=== PATIENT | female | born 1955 | race Caucasian/White ===

== ENCOUNTER 2020-08-02 09:35 | Outpatient (REF) | payer MEDICARE, MEDICAID, SELFPAY | END 2020-08-02 09:36 | disposition home or self-care (01) | LOC: HO.HAP 09:35 | PROVIDERS: Visit Provider Internal Medicine | DX: Z46.1 Encounter for fitting and adjustment of hearing aid (principal) | CPT/HCPCS: V5266 ==

== ENCOUNTER 2020-08-16 18:56 | Emergency (ER) | payer MEDICARE, MEDICAID, SELFPAY ==
--- NOTE | ~2020-08-16 | CT_ITS ---
EXAMINATION: CT ABDOMEN AND PELVIS WITHOUT CONTRAST CLINICAL INFORMATION: Right flank and groin pain COMPARISON: CT abdomen pelvis 10/03/2018 TECHNIQUE: Multidetector volumetric imaging was performed from the superior aspect of the liver through the pubic symphysis. Sagittal and coronal reformatted images were obtained on the technologist's workstation. This CT examination was performed using dose optimization techniques as appropriate, variously including the following: *Automated exposure control *Adjustment of mA and/or kV according to patient size (this includes techniques or standardized protocols for targeted exams where dose is matched to indication/reason for exam; i.e. extremities or head) *Use of iterative reconstruction technique DLP: 862 mGy-cm FINDINGS: LUNG BASES: The visualized lung bases are unremarkable. LIVER, GALLBLADDER, AND BILIARY TREE: The liver is normal in size, shape, and attenuation. No focal hepatic lesion or biliary ductal dilatation is present. The gallbladder is unremarkable with no evidence of radiopaque gallstones, gallbladder wall thickening, or obvious pericholecystic inflammatory changes. PANCREAS: Unremarkable. SPLEEN: Unremarkable. ADRENAL GLANDS: Unremarkable. KIDNEYS AND URETERS: Right kidney: There is right-sided hydronephrosis and dilatation of the ureter with associated perinephric stranding with an obstructing distal right ureteral calculus measuring 3 mm. Chest and back of this is a another tiny punctate 1 mm calculus. Within the right kidney itself are at least 5 small punctate nonobstructing calculi, the largest measuring under 3 mm in size. Left kidney: 5 nonobstructing left renal calculi are present none larger than 3 mm. Parapelvic cysts are present. No solid renal masses are seen. The left-sided collecting system is not dilated and the left ureter is unremarkable. BLADDER: Unremarkable. GASTROINTESTINAL TRACT: A small hiatal hernia is present. Scattered colonic diverticula are seen without diverticulitis The small and large bowel are otherwise unremarkable. The appendix is unremarkable. ABDOMINAL WALL: No significant hernia is appreciated. LYMPH NODES: No retroperitoneal lymphadenopathy. VASCULAR: Unremarkable. Minimal aortic calcification plaque is present without aneurysm. PELVIC VISCERA: An anteverted uterus is present. An abnormal adnexal mass is not seen. No free intraperitoneal fluid is present. OSSEOUS STRUCTURES: Marked degenerative changes present at L3-L4 and L5-S1. No bony destructive lesions are seen. CT/CT abdomen pelvis wo con IMPRESSION: 1. Obstructing 3 mm calculus distal right ureter at the UVJ with associated uretero-pelvocaliectasis. 2. Bilateral small punctate nonobstructing intrarenal calculi. 3. Other incidental findings as described above.
[2020-08-16 20:25] VITALS: BP 177/81; PULSE 72; RESP 18; TEMP 36.5; O2SAT 100; BMI 34.4
[2020-08-16 20:44] VITALS: BP 176/82; PULSE 62; RESP 18; TEMP 36.6; O2SAT 100
--- NOTE | 2020-08-16 20:46 | PC.NURSE ---
patient a&ox3, c/o rt flank/back pain and low abd pain, denies trauma, pt states she vomited prior to coming to the ED. vss.
[2020-08-16 22:14] LABS: MANUAL DIFF FLAG NO
[2020-08-16 22:16] LABS: Basophils Percent Auto 0.3 % (0-2); Eosinophils Percent Auto 0.4 % (0-4); Hematocrit 39.4 % (37-47); Hemoglobin 13.6 g/dl (12.0-16.0); Imm Gran Abs Auto 0.04 X10*3/uL (0.00-0.03); Imm Gran Pct Auto 0.4 % (0.0-0.4); Lymphocytes Percent Auto 10.2 % (20-40); Mean Corpuscular HGB Conc 34.5 g/dl (31.0-35.0); Mean Corpuscular Hemoglobin 32.2 pg (27.0-33.0); Mean Corpuscular Volume 93.4 fL (80-98); Mean Platelet Volume 11.3 fL (9.4-12.3); Monocytes Absolute Auto 0.5 X10*3/uL (0.1-1.2); Monocytes Percent Auto 5.7 % (2-11); Neutrophils Absolute Auto 7.7 X10*3/uL (2.0-8.3); Platelet Count 152 X10*3/uL (160-400); Red Blood Count 4.22 X10*6/uL (4.20-5.50); Red Cell Distribution Width 11.7 % (11.0-16.0); White Blood Count 9.3 X10*3/uL (4.8-10.8)
[2020-08-16 22:23] LABS: Glucose Urine UA NEG (NEG); Leukocyte Esterase Urine NEG (NEG); Nitrite Urine NEG (NEG); PH 5.5 (5.0-8.0); Urine Blood 2+ (NEG); Urine Ketones 5 MG/DL (NEG); Urine Protein NEG (NEG-TRACE)
[2020-08-16] MEDS: oxyCODONE HCl Immed Release 5 MG TABLET PO (22:24)
[2020-08-16 22:25] LABS: INTERNATIONAL NORM RATIO 1.1 (0.9-1.1); Prothrombin Time 12.7 SEC (10.8-13.0)
[2020-08-16 22:26] LABS: Appearance Urine CLEAR; Color Urine YELLOW
--- NOTE | 2020-08-16 22:27 | PC.NURSE ---
urine obtained, pt medicated per order
[2020-08-16 22:28] LABS: Partial Thromboplastin Time 31.2 SEC (24.1-38.0)
[2020-08-16 22:37] VITALS: BP 154/83; PULSE 102; RESP 18; TEMP 36.7; O2SAT 96
[2020-08-16 22:38] LABS: Alanine Aminotransferase 35 U/L (0-31); Albumin Level 4.2 g/dL (3.5-5.0); Alkaline Phosphatase 87 U/L (39-117); Anion Gap 15 (12-20); Aspartate Amino Transferase 23 U/L (5-31); Bilirubin Direct 0.2 mg/dL (0.0-0.5); Bilirubin Total 0.4 mg/dL (0.0-1.0); Blood Urea Nitrogen 18 mg/dL (9-16); Calcium 9.2 mg/dL (8.4-10.2); Carbon Dioxide 28 mmol/L (22-29); Chloride 98 mmol/L (96-108); Estimated Glomerular Filt Rate > 60; Glucose Random 117 mg/dL (60-115); Lipase 14 U/L (8-78); Potassium 3.4 mmol/L (3.3-5.1); Sodium 138 mmol/L (135-145); Total Protein 6.9 g/dL (6.5-8.0)
[2020-08-16 22:41] LABS: Bacteria Urine TRACE /LPF; Squamous Epithelial Cell Urine TRACE /LPF; WBC Urine 0-2 /HPF (0-4)
--- NOTE | 2020-08-16 23:33 | ED_ITS ---
HPI - General Adult General Chief complaint: Back Pain/Injury Stated complaint: BACK AND GROIN PAIN Time Seen by Provider: 08/16/20 21:41 Source: patient Mode of arrival: ambulatory Limitations: no limitations History of Present Illness HPI narrative: Patient presents to ED for right lower flank pain radiating to ri t lower abdomen and groin while during dinner. Patient also states dysuria. Patient states no hematuria. Patient states some nausea, but no vomiting. Patient states no fever chills. Patient denies any recent trauma to the abdomen, flank, upper back area. Patient states no chest pain or shortness of breath Related Data Previous Rx's Medication Instructions Recorded oxycodone-acetaminophen [Percocet] 1 tab PO TID PRN #9 tab 08/16/20 prednisone 40 mg PO DAILY #10 tab 08/16/20 tamsulosin [Flomax] 0.4 mg PO DAILY #10 cap 08/16/20 Allergies Allergy/AdvReac Type Severity Reaction Status Date / Time No Known Allergies Allergy Verified 08/16/20 20:24 [No Known Allergies*] Review of Systems Review of Systems: Yes all other systems are reviewed and are negative Constitutional: Constitutional: Reports as per HPI and Reports no additional constitutional complaints Eyes: Eyes: Reports as per HPI and Reports no additional eye complaints ENT: Reports system reviewed and no additional complaints, except as documented and Reports as per HPI Cardiovascular: Cardiovascular: Reports as per HPI and Reports no additional cardiovascular complaints Respiratory: Respiratory: Reports as per HPI and Reports no additional respiratory complaints Gastrointestinal: Gastrointestinal: Reports as per HPI and Reports no additional gastrointestinal complaints Genitourinary: Genitourinary: Reports no additional female genitourinary complaints and Reports as per HPI Comments: Positive right flank pain. Dysuria Musculoskeletal: Musculoskeletal: Reports no additional musculoskeletal complaints and Reports as per HPI Neurologic: Reports system reviewed and no additional complaints, except as documented and Reports as per HPI [facility] [place] Past Medical History Medical History (Updated 08/16/20 @ 23:47 by GEOVANNA Bingham) Hypertension Social History Social History Alcohol intake: never Smoked in Last 30 Days: No Use of substances other than those prescribed or required for medical reasons: No Advance Directives: No Advance Directives Information Provided: No Physical Exam Vital Signs: Vital Signs: Last Vital Signs Temp 98.0 F 08/16/20 22:37 Pulse 70 08/16/20 23:37 Resp 18 08/16/20 23:37 BP 135/64 08/16/20 23:37 Pulse Ox 94 08/16/20 23:37 Body Mass Index 34.4 Const: General: cooperative, healthy appearing, comfortable, no acute distress, well developed, alert, awake and Physically active Orientation/consciousness: patient oriented x3 HENMT: Head: Yes normal to inspection and Yes No palpable skull fracture present Eyes: General: appearance normal, both eyes and all related structures Neck: Neck: Yes normal visual inspection, Yes full ROM, Yes no lymphadenopathy, Yes no meningeal signs, Yes trachea midline, Yes supple and No tender Chest: Chest palpation & inspection: normal inspection of the chest and normal palpation of entire chest wall Resp: Effort & Inspection: normal respiratory effort and able to speak in co mplete sentences Auscultation: clear to auscultation bilaterally Cardio: Jugular venous distension: no JVD Heart sounds: S1 normal heart sound present and S2 normal heart sound present GI: Inspection: Yes normal to inspection and No abdominal wall ecchymosis Palpation (GI): Soft to palpation, not firm, Tenderness to palpation present (GI) (Right suprapubic) suprapubicly; not at McBurney's point, not periumbilically, Carmichael's sign negative, obturator sign negative, psoas sign negative, with no rebound tenderness and Rovsing's sign negative, no guarding and not rigid : General: Yes CVA tenderness (Mild right CVA) Back/Spine/Pelvis: Back: CVA tenderness (Mild right CVA) Skin: General skin exam: no rashes or lesions noted and elasticity normal Neuro: General: patient oriented x3, no meningeal signs and CN's II-XI intact bilaterally Cranial nerves: Yes CN's II-XII intact bilaterally Extrem: General: Yes normal to inspection and Yes full ROM Psych: Appearance: grossly normal, well kempt and not disheveled Course Course Course Narrative: Patient will be evaluated for possible kidney stones. Patient given p.o. pain medication and Zofran. Reevaluation(s) Reevaluation #1: UA shows blood but negative for UTI. Kidney function came back normal. Negative for elevated white blood cell count. Abdominal CT scan shows 3 mm ureter stone. Patient present not any distress. Patient discharged with prednisone, Flomax, and Percocet Time: 23:46 Medical Decision Making MDM Narrative Medical decision making narrative: Ureter stone Lab Data Result diagrams: 08/16/20 22:07 08/16/20 22:07 Labs: Lab Results 08/16/20 08/16/20 08/16/20 Range/Units 22:07 22:07 22:07 WBC 9.3 (4.8-10.8) X10*3/uL RBC 4.22 (4.20-5.50) X10*6/uL Hgb 13.6 (12.0-16.0) g/dl Hct 39.4 (37-47) % MCV 93.4 (80-98) fL MCH 32.2 (27.0-33.0) pg MCHC 34.5 (31.0-35.0) g/dl RDW 11.7 (11.0-16.0) % Plt Count 152 L (160-400) X10*3/uL MPV 11.3 (9.4-12.3) fL Immature Gran % (Auto) 0.4 (0.0-0.4) % Neut % (Auto) 83.0 H (45-73) % Lymph % (Auto) 10.2 L (20-40) % Banner % (Auto) 5.7 (2-11) % Eos % (Auto) 0.4 (0-4) % Baso % (Auto) 0.3 (0-2) % Lymph # (Auto) 1.0 L (1.2-4.9) X10*3/uL Banner # (Auto) 0.5 (0.1-1.2) X10*3/uL Eos # (Auto) 0.0 (0.0-0.4) X10*3/uL Baso # (Auto) 0.0 (0.0-0.2) X10*3/uL Abs Immat Gran (auto) 0.04 H (0.00-0.03) X10*3/uL Absolute Neuts (auto) 7.7 (2.0-8.3) X10*3/uL Absolute Nucleated RBC 0.000 (0.0-0.012) X10*3/uL Nucleated RBC % (auto) 0.0 (0.0-0.2) /100WBC PT 12.7 (10.8-13.0) SEC INR 1.1 (0.9-1.1) APTT 31.2 (24.1-38.0) SEC Sodium 138 (135-145) mmol/L Potassium 3.4 (3.3-5.1) mmol/L Chloride 98 (96-108) mmol/L Carbon Dioxide 28 (22-29) mmol/L Anion Gap 15 (12-20) BUN 18 H (9-16) mg/dL Creatinine 0.74 (0.5-1.4) mg/dL Estim Creat Clear Calc 92.0 Estimated GFR > 60 Random Glucose 117 H (60-115) mg/dL Calcium 9.2 (8.4-10.2) mg/dL Total Bilirubin 0.4 (0.0-1.0) mg/dL Direct Bilirubin 0.2 (0.0-0.5) mg/dL AST 23 (5-31) U/L ALT 35 H (0-31) U/L Alkaline Phosphatase 87 (39-117) U/L Total Protein 6.9 (6.5-8.0) g/dL Albumin 4.2 (3.5-5.0) g/dL Lipase (8-78) U/L Urine Color Urine Appearance Urine pH (5.0-8.0) Ur Specific [employer] (1.005-1.025) Urine Protein (NEG-TRACE) MG/DL Urine Glucose (UA) (NEG) MG/DL Urine Ketones (NEG) MG/DL Urine Blood (NEG) Urine Nitrite (NEG) Ur Leukocyte Esterase (NEG) Urine RBC (0) /HPF Urine WBC (0-4) /HPF Ur Squamous Epith Cells /LPF Urine Bacteria /LPF 08/16/20 08/16/20 Range/Units 22:07 22:17 WBC (4.8-10.8) X10*3/uL RBC (4.20-5.50) X10*6/uL Hgb (12.0-16.0) g/dl Hct (37-47) % MCV (80-98) fL MCH (27.0-33.0) pg MCHC (31.0-35.0) g/dl RDW (11.0-16.0) % Plt Count (160-400) X10*3/uL MPV (9.4-12.3) fL Immature Gran % (Auto) (0.0-0.4) % Neut % (Auto) (45-73) % Lymph % (Auto) (20-40) % Banner % (Auto) (2-11) % Eos % (Auto) (0-4) % Baso % (Auto) (0-2) % Lymph # (Auto) (1.2-4.9) X10*3/uL Banner # (Auto) (0.1-1.2) X10*3/uL Eos # (Auto) (0.0-0.4) X10*3/uL Baso # (Auto) (0.0-0.2) X10*3/uL Abs Immat Gran (auto) (0.00-0.03) X10*3/uL Absolute Neuts (auto) (2.0-8.3) X10*3/uL Absolute Nucleated RBC (0.0-0.012) X10*3/uL Nucleated RBC % (auto) (0.0-0.2) /100WBC PT (10.8-13.0) SEC INR (0.9-1.1) APTT (24.1-38.0) SEC Sodium (135-145) mmol/L Potassium (3.3-5.1) mmol/L Chloride (96-108) mmol/L Carbon Dioxide (22-29) mmol/L Anion Gap (12-20) BUN (9-16) mg/dL Creatinine (0.5-1.4) mg/dL Estim Creat Clear Calc Estimated GFR Random Glucose (60-115) mg/dL Calcium (8.4-10.2) mg/dL Total Bilirubin (0.0-1.0) mg/dL Direct Bilirubin (0.0-0.5) mg/dL AST (5-31) U/L ALT (0-31) U/L Alkaline Phosphatase (39-117) U/L Total Protein (6.5-8.0) g/dL Albumin (3.5-5.0) g/dL Lipase 14 (8-78) U/L Urine Color YELLOW Urine Appearance CLEAR Urine pH 5.5 (5.0-8.0) Ur Specific [employer] 1.020 (1.005-1.025) Urine Protein NEG (NEG-TRACE) MG/DL Urine Glucose (UA) NEG (NEG) MG/DL Urine Ketones 5 (NEG) MG/DL Urine Blood 2+ H (NEG) Urine Nitrite NEG (NEG) Ur Leukocyte Esterase NEG (NEG) Urine RBC 5-9 H (0) /HPF Urine WBC 0-2 (0-4) /HPF Ur Squamous Epith Cells TRACE /LPF Urine Bacteria TRACE /LPF Discharge Plan Discharge Clinical Impression: Calculus, ureter Patient Disposition: Home, Self-Care Instructions: Ureteral Stones (ED) Additional Instructions: Return to the ED immediately worsening abdominal/flank pain, nausea, vomiting, fever, chills, or any other concerning symptoms. Prescriptions: New oxycodone-acetaminophen [Percocet] 2.5-325 mg tablet 1 tab PO TID PRN (Reason: pain) Qty: 9 RF: 0 tamsulosin [Flomax] 0.4 mg capsule 0.4 mg PO DAILY Qty: 10 RF: 0 prednisone 20 mg tablet 40 mg PO DAILY Qty: 10 RF: 0 Referrals: Jaime Jaramillo MD [Physician] - 2 days (3mm Right Ureter Stone.) Interventions: ED Discharge Assessment Last Done: 08/17/20 00:14 Discharge Date/Time: 08/17/20 00:14 Print Language: Hebrew
[2020-08-16 23:37] VITALS: BP 135/64; PULSE 70; RESP 18; O2SAT 94
== END 2020-08-17 00:14 | disposition home or self-care (01) ==
PROVIDERS: Physician Assistant; Emergency Provider Emergency Medicine; PCP Internal Medicine
DX: N13.2 Hydronephrosis with renal and ureteral calculous obstruction (principal); I10 Essential (primary) hypertension
CPT/HCPCS: 36415; 74176; 80053; 80076; 81001; 82248; 83690; 85025; 85610; 85730; 99284

== ENCOUNTER 2020-08-21 13:36 | Outpatient (REF) | payer MEDICARE, MEDICAID, SELFPAY ==
--- NOTE | 2020-08-21 13:57 | MHC.AU.P13 ---
Hearing Instrument Problem Date of Visit: 08/21/20 Right Ear: Motor Expert: Phonak Model: SpanDeXEO M70-13T Serial Number: [id number] Repair Warranty: 04/29/2023 ORIGINAL REPAIR AND L&D Loss and Damage Warranty: 04/29/2023 Battery Size: 13 Color: SANDALWOOD Grails Web Application Developer: 1M Type of Dome: SMALL OPEN Type of Wax Guard: CERUSHIELD Left Ear: Motor Expert: Phonak Model: AUDEO M70-13T Serial Number: [id number] RepairWarranty: 04/29/2023 REPAIR AND L&D Loss and Damage Warranty: 04/29/2023 Battery Size: 13 Color: SANDALWOOD Grails Web Application Developer: 1M Type of Dome: SMALL OPEN Type of Wax Guard: CERUSHIELD Follow-Up Summary: [facility] Problem: Right aid not working - Both hearing aids cleaned, wax guards replaced, small open domes replaced and now both amplifying clearly. Recommendations: Recommendations: Hearing instrument follow-up or maintenance as needed. Signature: Provider: BRAXTON Love-
== END 2020-08-21 13:37 | disposition home or self-care (01) ==
LOC: HO.HAP 13:36
PROVIDERS: Visit Provider Internal Medicine
DX: Z46.1 Encounter for fitting and adjustment of hearing aid (principal)
CPT/HCPCS: 92593; 99499

== ENCOUNTER 2021-02-19 09:08 | Outpatient (REF) | payer MEDICARE, MEDICAID, SELFPAY | END 2021-02-19 09:09 | disposition home or self-care (01) | LOC: HO.HAP 09:08 | PROVIDERS: Visit Provider Internal Medicine | DX: Z46.1 Encounter for fitting and adjustment of hearing aid (principal); H90.3 Sensorineural hearing loss, bilateral | CPT/HCPCS: 92593; V5266 ==

== ENCOUNTER 2021-06-27 14:18 | Outpatient (REF) | payer MEDICARE, MEDICAID, SELFPAY | END 2021-06-27 14:19 | disposition home or self-care (01) | LOC: HO.HAP 14:18 | PROVIDERS: Visit Provider Internal Medicine | DX: Z46.1 Encounter for fitting and adjustment of hearing aid (principal); H90.3 Sensorineural hearing loss, bilateral | CPT/HCPCS: V5266 ==

== ENCOUNTER 2021-08-07 10:58 | Emergency (ER) | payer MEDICARE, MEDICAID, SELFPAY ==
[2021-08-07 11:02] VITALS: BP 136/86; PULSE 86; RESP 18; TEMP 36.6; O2SAT 99; BMI 31.9
--- NOTE | 2021-08-07 11:24 | ED_ITS ---
HPI - General Adult General Chief complaint: Wound/Laceration Stated complaint: cyst Time Seen by Provider: 08/07/21 11:21 History of Present Illness HPI narrative: Patient complains of painful lump draining pus on left gluteal area for around 10 days, no fever no vomiting no abdominal pain Related Data Previous Rx's Medication Instructions Recorded oxycodone-acetaminophen 2.5 mg-325 1 tab PO TID PRN #9 tab 08/16/20 mg tablet (Percocet) prednisone 20 mg tablet 40 mg PO DAILY #10 tab 08/16/20 tamsulosin 0.4 mg capsule (Flomax) 0.4 mg PO DAILY #10 cap 08/16/20 oxycodone 5 mg tablet 2.5 mg PO Q6H PRN #10 tab 08/17/20 cephalexin 500 mg tablet 500 mg PO QID 7 Days #28 tab 08/07/21 doxycycline hyclate 100 mg capsule 100 mg PO BID 7 Days #14 cap 08/07/21 ibuprofen 600 mg tablet 600 mg PO Q6H PRN #20 tab 08/07/21 oxycodone 5 mg tablet 5 mg PO Q6H PRN #14 tab 08/07/21 Allergies Allergy/AdvReac Type Severity Reaction Status Date / Time No Known Allergies Allergy Verified 08/16/20 20:24 [No Known Allergies*] Review of Systems Review of Systems: Positive for left gluteal abscess Negatives are no fever no chills no dizziness no weakness no headache no neck pain no abdominal pain no dysuria no other abscesses or rashes Yes all other systems are reviewed and are negative [facility] [place] Past Medical History [facility] Narrative: Positive for multiple prior abscess Source: nursing notes reviewed Medical History (Updated 08/07/21 @ 13:07 by GEOVANNA Blue) Hypertension Hypothyroid Social History Social History Alcohol intake: never Advance Directives: No Advance Directives Information Provided: No Physical Exam Vital Signs: Vital Signs: Last Vital Signs Temp 98 F 08/07/21 11:02 Pulse 86 08/07/21 11:02 Resp 18 08/07/21 11:02 BP 136/86 08/07/21 11:02 Pulse Ox 99 08/07/21 11:02 BMI result Body Mass Index 31.9 General appearance no acute distress Head is normocephalic atraumatic Neck is supple Respiratory no distress Abdomen soft nontender Skin exam in the left gluteal area there is a fluctuant tender red area consistent with an abscess Extremities full range of motion x4 Neuro no focal deficits Course Course Course Narrative: Procedure note left gluteal abscess is cleansed with Betadine Anesthesia is 10 cc of 1% lidocaine A small incision is made and it is probed with forceps to break up loculations with discharge of copious pus, packing was placed in large abscess cavity and dressing was applied Discharge Plan Discharge Clinical Impression: Abscess Patient Disposition: Home, Self-Care Additional Instructions: We drained a very large amount of pus from the abscess Return to the ER in 2 days, Thursday for packing removal and wound check right It is also fine to follow with your surgeon if he has an appointment on Thursday to make sure abscess is fully drained and improving, we can do that here if he is unavailable Return any time for spreading redness, worse pain and swelling, fever, any worse condition or any concerns Pain should be significantly improved with drainage of so much fluid so if pain worsens you should come back for recheck Prescriptions: New oxycodone 5 mg tablet 5 mg PO Q6H PRN (Reason: pain) Qty: 14 0RF cephalexin 500 mg tablet 500 mg PO QID 7 Days Qty: 28 0RF doxycycline hyclate 100 mg capsule 100 mg PO BID 7 Days Qty: 14 0RF ibuprofen 600 mg tablet 600 mg PO Q6H PRN (Reason: pain) Qty: 20 0RF No Action oxycodone-acetaminophen [Percocet] 2.5-325 mg tablet 1 tab PO TID PRN (Reason: pain) Qty: 9 0RF Rx Instructions: side effect is drowsiness. Do not take at work or while driving. tamsulosin [Flomax] 0.4 mg capsule 0.4 mg PO DAILY Qty: 10 0RF prednisone 20 mg tablet 40 mg PO DAILY Qty: 10 0RF oxycodone 5 mg tablet 2.5 mg PO Q6H PRN (Reason: pain) Qty: 10 0RF Interventions: ED Discharge Assessment Last Done: 08/07/21 13:35 Discharge Date/Time: 08/07/21 13:35
[2021-08-07] MEDS: Lidocaine HCl 1 % MPF 5 ML VIAL SUBCUT ×3 (11:37→12:51)
[2021-08-07] MEDS: cephALEXin 500 MG CAPSULE PO (11:37)
[2021-08-07] MEDS: oxyCODONE HCl Immed Release 5 MG TABLET PO (12:50)
== END 2021-08-07 13:35 | disposition home or self-care (01) ==
PROVIDERS: Emergency Provider Emergency Medicine; PCP Internal Medicine
DX: L02.31 Cutaneous abscess of buttock (principal); I10 Essential (primary) hypertension
CPT/HCPCS: 10060; 99284

== ENCOUNTER 2021-08-09 07:22 | Emergency (ER) | payer MEDICARE, MEDICAID, SELFPAY ==
[2021-08-09 07:25] VITALS: BP 150/65; PULSE 65; RESP 16; TEMP 35.5; O2SAT 96; BMI 31.9
--- NOTE | 2021-08-09 08:36 | ED_ITS ---
HPI - Wound/Laceration General Chief Complaint: Wound/Laceration Stated Complaint: packing removal Time Seen by Provider: 08/09/21 08:36 Source: patient History of Present Illness HPI narrative: Patient is a 65-year-old female had an I&D done 2 days prior presented today for wound check. No fever no chills been compliant with taking her antibiotics. Feels well in general. Related Data Previous Rx's Medication Instructions Recorded oxycodone-acetaminophen 2.5 mg-325 1 tab PO TID PRN #9 tab 08/16/20 mg tablet (Percocet) prednisone 20 mg tablet 40 mg PO DAILY #10 tab 08/16/20 tamsulosin 0.4 mg capsule (Flomax) 0.4 mg PO DAILY #10 cap 08/16/20 oxycodone 5 mg tablet 2.5 mg PO Q6H PRN #10 tab 08/17/20 cephalexin 500 mg tablet 500 mg PO QID 7 Days #28 tab 08/07/21 doxycycline hyclate 100 mg capsule 100 mg PO BID 7 Days #14 cap 08/07/21 ibuprofen 600 mg tablet 600 mg PO Q6H PRN #20 tab 08/07/21 oxycodone 5 mg tablet 5 mg PO Q6H PRN #14 tab 08/07/21 Allergies Allergy/AdvReac Type Severity Reaction Status Date / Time No Known Allergies Allergy Verified 08/16/20 20:24 [No Known Allergies*] COUNTS INCLUDE 234 BEDS AT THE [facility] Past Medical History Attestation statement: The following information was validated with the patient. Medical History Hypertension Hypothyroid Social History Social History Alcohol intake: never Advance Directives: No Advance Directives Information Provided: No Physical Exam Vital Signs: Vital Signs: Last Vital Signs Temp 96 F L 08/09/21 07:25 Pulse 65 08/09/21 07:25 Resp 16 08/09/21 07:25 BP 150/65 H 08/09/21 07:25 Pulse Ox 96 08/09/21 07:25 BMI result Body Mass Index 31.9 Appearance: Alert. Oriented X3. No acute distress. Eyes: Pupils equal, round and reactive to light. ENT: Pharynx normal. Neck: Normal inspection. Neck supple. No lymph nodes noted. No crepitus CVS: Normal heart rate and rhythm. Pulses normal. Normal S1 and S2 Respiratory: No respiratory distress. Breath sounds normal. No Wheezing. No rales Abdomen: Soft and nontender. No rigidity. No distention. good BS x4 Skin: Skin warm and dry. Normal skin color. Normal skin turgor. Positive abscess to the left gluteal fold area. Previously drained. The wound packing actually fell out by itself. There is no discharge from the area. The skin did not look infected. Extremities: No lower extremity edema. Neurovascular intact to all extremities. No Lacerations. No Rash Neuro: Oriented X 3. No motor deficit. No sensory deficit. Moving all extermities. No slurred speech MDM - Wound/Laceration MDM Narrative Medical decision making narrative: Well-appearing no distress packing already fell out will discharge patient home no fever no chills no systemic complaints Discharge Plan Discharge Clinical Impression: Abscess Patient Disposition: Home, Self-Care Instructions: Incision and Drainage (ED) Prescriptions: No Action oxycodone-acetaminophen [Percocet] 2.5-325 mg tablet 1 tab PO TID PRN (Reason: pain) Qty: 9 0RF Rx Instructions: side effect is drowsiness. Do not take at work or while driving. tamsulosin [Flomax] 0.4 mg capsule 0.4 mg PO DAILY Qty: 10 0RF prednisone 20 mg tablet 40 mg PO DAILY Qty: 10 0RF oxycodone 5 mg tablet 2.5 mg PO Q6H PRN (Reason: pain) Qty: 10 0RF oxycodone 5 mg tablet 5 mg PO Q6H PRN (Reason: pain) Qty: 14 0RF cephalexin 500 mg tablet 500 mg PO QID 7 Days Qty: 28 0RF doxycycline hyclate 100 mg capsule 100 mg PO BID 7 Days Qty: 14 0RF ibuprofen 600 mg tablet 600 mg PO Q6H PRN (Reason: pain) Qty: 20 0RF Referrals: Tenzin Arreaga MD [Primary Care Provider] - 2 days (Follow-up as needed)
== END 2021-08-09 08:44 | disposition home or self-care (01) ==
PROVIDERS: Emergency Provider Emergency Medicine Emergency Medical Services; PCP Internal Medicine
DX: Z48.01 Encounter for change or removal of surgical wound dressing (principal); L02.31 Cutaneous abscess of buttock
CPT/HCPCS: 99283; 99284

== ENCOUNTER 2021-11-06 12:50 | Outpatient (REF) | payer MEDICARE, MEDICAID, SELFPAY | END 2021-11-06 12:51 | disposition home or self-care (01) | LOC: HO.HAP 12:50 | PROVIDERS: Visit Provider Internal Medicine | DX: Z46.1 Encounter for fitting and adjustment of hearing aid (principal); H90.3 Sensorineural hearing loss, bilateral | CPT/HCPCS: V5266 ==

== ENCOUNTER 2022-01-10 13:02 | Outpatient (REF) | payer MEDICARE, MEDICAID, SELFPAY | END 2022-01-10 13:03 | disposition home or self-care (01) | LOC: HO.HAP 13:02 | PROVIDERS: Visit Provider Internal Medicine | DX: Z46.1 Encounter for fitting and adjustment of hearing aid (principal); H90.3 Sensorineural hearing loss, bilateral | CPT/HCPCS: 92592 ==

== ENCOUNTER 2022-01-16 12:25 | Outpatient (REF) | payer MEDICARE, MEDICAID, SELFPAY | END 2022-01-16 12:26 | disposition home or self-care (01) | LOC: HO.HAP 12:25 | PROVIDERS: Visit Provider Internal Medicine | DX: Z13.89 Encounter for screening for other disorder (principal) ==

== ENCOUNTER 2022-01-28 08:57 | Outpatient (REF) | payer MEDICARE, MEDICAID, SELFPAY ==
--- NOTE | 2022-01-28 09:30 | MHC.AU.HFU ---
Hearing Instrument Follow-Up- Binaural Date of Visit: 01/28/22 Right Ear: Substance Abuse Nurse: Phonak Model: AUDEO M70-13T Serial Number: [id number] Repair Warranty: 04/29/2023 ORIGINAL REPAIR AND L&D Loss and Damage Warranty: 04/29/2023 Battery Size: 13 Color: SANDALWOOD Profile Grinder Technician: 1M Type of Dome: MEDIUM OPEN Type of Wax Guard: CERUSHIELD Dispensed By: [facility] Date of Fittin02/17/2020 Left Ear: Substance Abuse Nurse: Phonak Model: AUDEO M70-13T Serial Number: [id number] Repair Warranty: 04/29/2023 REPAIR AND L&D Loss and Damage Warranty: 04/29/2023 Battery Size: 13 Color: SANDALWOOD Profile Grinder Technician: 1M Type of Dome: MEDIUM OPEN Type of Wax Guard: CERUSHIELD Dispensed By: [facility] Date of Fittin02/17/2020 Follow-Up Summary: Hearing Aid Problem. Patient reports she is having trouble hearing and needs to frequently push the production control coordinator/domes further in the canal as they work out of ear. Patient also does not know how to change wax guards and clean aids. Changed to medium open domes for both aids with patient noting improved sound quality and receivers staying in place while in office. Cleaned aids and patient practiced how to change wax guards and replace domes. Provided a set of large open domes if patient feels the aids moving in ears again. If problem persists, advise her to schedule appointment for earmold impressions to try custom slim tips. Also advise audiologic re-evaluation and patient will contact PCP for order. Diagnosis Code(s):Primary Diagnosis: H90.3 Bilateral Sensorineural Hearing Loss Services Performed:[facility] Non-Quantity Charges: HACHECKB (MH>1 yr or new to us) Face to face appointment Signature: Provider: Ajit Vargas, SILVA-A
== END 2022-01-28 08:58 | disposition home or self-care (01) ==
LOC: HO.HAP 08:57
PROVIDERS: Visit Provider Internal Medicine
DX: Z46.1 Encounter for fitting and adjustment of hearing aid (principal); H90.3 Sensorineural hearing loss, bilateral
CPT/HCPCS: 92593

== ENCOUNTER 2022-02-19 09:13 | Outpatient (REF) | payer MEDICARE, MEDICAID, SELFPAY | END 2022-02-19 09:14 | disposition home or self-care (01) | LOC: HO.HAP 09:13 | PROVIDERS: Visit Provider Internal Medicine | DX: Z46.1 Encounter for fitting and adjustment of hearing aid (principal); H90.3 Sensorineural hearing loss, bilateral | CPT/HCPCS: V5275 ==

== ENCOUNTER 2022-03-20 12:14 | Outpatient (REF) | payer MEDICARE, MEDICAID, SELFPAY ==
--- NOTE | 2022-03-21 09:11 | MHC.AU.HFU ---
Hearing Instrument Follow-Up- Binaural Date of Visit: 03/20/22 Right Ear: Community Artist: Phonak Model: AUDEO M70-13T Serial Number: [id number] Repair Warranty: 04/29/2023 ORIGINAL REPAIR AND L&D Loss and Damage Warranty: 04/29/2023 Battery Size: 13 Color: SANDALWOOD Senior Business Intelligence Analyst: 1M Type of Mold: C-SHELL CANAL LOCK Serial #: [id number] Type of Wax Guard: CERUSTOP Dispensed By: [facility] Date of Fittin02/17/2020 Left Ear: Community Artist: Phonak Model: AUDEO M70-13T Serial Number: [id number] Repair Warranty: 04/29/2023 REPAIR AND L&D Loss and Damage Warranty: 04/29/2023 Battery Size: 13 Color: SANDALWOOD Senior Business Intelligence Analyst: 1M Type of Mold: C-SHELL CANAL LOCK Serial #: [id number] Type of Wax Guard: CERUSTOP Dispensed By: [facility] Date of Fittin02/17/2020 Follow-Up Summary: Ear mold pickers material handlers. Fit new custom c-shell with canal lock ear molds and reprogrammed hearing aids to account for change in acoustic coupling. Patient noticed an immediate improvement in comfort, secure fit, and sound quality. Reviewed changing wax guard, as it is now a cerustop (no longer cerushield) and gave two packages of cerustops. Also discussed cleaning and maintenance of the ear molds themselves. Advised to call if problems arise including any discomfort from ear molds. Recommendations: Hearing instrument maintenance in 6 months, or sooner if needed. Please contact our clinic with any questions or concerns. Patient will call if problems persist. Diagnosis Code(s): Primary Diagnosis: H90.3 Bilateral Sensorineural Hearing Loss Services Performed: Earmold (Quantity): 2 Signature: Provider: NOE Peoples
--- NOTE | 2022-03-21 09:15 | MHC.AU.HFU ---
Hearing Instrument Follow-Up- Binaural Date of Visit: 03/20/22 Right Ear: Senior Fire Protection Engineer: Phonak Model: AUDEO M70-13T Serial Number: [id number] Repair Warranty: 04/29/2023 ORIGINAL REPAIR AND L&D Loss and Damage Warranty: 04/29/2023 Battery Size: 13 Color: SANDALWOOD Bath Steward/Stewardess: 1M Type of Mold: C-SHELL CANAL LOCK Serial #: [id number] Type of Wax Guard: CERUSTOP Dispensed By: [facility] Date of Fittin02/17/2020 Left Ear: Senior Fire Protection Engineer: Phonak Model: AUDEO M70-13T Serial Number: [id number] Repair Warranty: 04/29/2023 REPAIR AND L&D Loss and Damage Warranty: 04/29/2023 Battery Size: 13 Color: SANDALWOOD Bath Steward/Stewardess: 1M Type of Mold: C-SHELL CANAL LOCK Serial #: [id number] Type of Wax Guard: CERUSTOP Dispensed By: [facility] Date of Fittin02/17/2020 Follow-Up Summary: Ear mold bulk picker. Fit new c-shell with canal lock ear molds and reprogrammed hearing aids to account for change in acoustic coupling. Patient noticed an immediate improvement in comfort, secure fit, and sound quality. Reviewed changing wax guard (now cerustop, previously cerushield) and gave two packages of cerustops. Also discussed cleaning and maintenance of the ear molds themselves. Recommendations: Hearing instrument maintenance in 6 months, or sooner if needed. Patient will call if problems persist. Diagnosis Code(s): Primary Diagnosis: H90.3 Bilateral Sensorineural Hearing Loss Services Performed: Earmold (Quantity): 2 Signature: Provider: Diane Hess [facility]
--- NOTE | 2022-03-21 09:20 | MHC.AU.HFU ---
Hearing Instrument Follow-Up- Binaural Date of Visit: 03/20/22 Right Ear: Program Dir: Phonak Model: AUDEO M70-13T Serial Number: [id number] Repair Warranty: 04/29/2023 ORIGINAL REPAIR AND L&D Loss and Damage Warranty: 04/29/2023 Battery Size: 13 Color: SANDALWOOD Lead Systems Developer: 1M Type of Mold: C-SHELL CANAL LOCK Serial #: [id number] Type of Wax Guard: CERUSTOP Dispensed By: [facility] Date of Fittin02/17/2020 Left Ear: Program Dir: Phonak Model: AUDEO M70-13T Serial Number: [id number] Repair Warranty: 04/29/2023 REPAIR AND L&D Loss and Damage Warranty: 04/29/2023 Battery Size: 13 Color: SANDALWOOD Lead Systems Developer: 1M Type of Mold: C-SHELL CANAL LOCK Serial #: [id number] Type of Wax Guard: CERUSTOP Dispensed By: [facility] Date of Fittin02/17/2020 Follow-Up Summary: Ear mold orange picker. Fit new c-shell with canal lock ear molds and reprogrammed hearing aids to account for change in acoustic coupling. Patient noticed an immediate improvement in comfort, secure fit, and sound quality. Reviewed changing wax guard (now cerustop, previously cerushield) and gave two packages of cerustops. Also discussed cleaning of the ear molds themselves. Recommendations: Hearing instrument maintenance in 6 months, or sooner if needed. Patient will call if problems persist. Diagnosis Code(s): Primary Diagnosis: H90.3 Bilateral Sensorineural Hearing Loss Services Performed: Earmold (Quantity): 2 Signature: Provider: Diane Hess [facility]
== END 2022-03-20 12:15 | disposition home or self-care (01) ==
LOC: HO.HAP 12:14
PROVIDERS: Visit Provider Internal Medicine
DX: Z46.1 Encounter for fitting and adjustment of hearing aid (principal); H90.3 Sensorineural hearing loss, bilateral
CPT/HCPCS: V5264

== ENCOUNTER 2022-04-17 12:42 | Outpatient (REF) | payer MEDICARE, MEDICAID, SELFPAY | END 2022-04-17 12:43 | disposition home or self-care (01) | LOC: HO.HAP 12:42 | PROVIDERS: Visit Provider Internal Medicine | DX: Z46.1 Encounter for fitting and adjustment of hearing aid (principal); H90.3 Sensorineural hearing loss, bilateral | CPT/HCPCS: 92593 ==

== ENCOUNTER 2022-07-18 13:25 | Outpatient (REF) | payer MEDICARE, MEDICAID, SELFPAY ==
--- NOTE | 2022-07-18 15:43 | MHC.AU.HA3 ---
Hearing Instrument Follow-Up- Binaural Date of Visit: 07/18/22 Right Ear: Dannie, Model, Color, Serial Number: Audesheri [id number] SN: [id number] Color: [place]wood Net Lead Developer Repair Warranty: 04/29/2023 Net Lead Developer Loss and Damage Warranty: 04/29/2023 [facility] Service Plan: 02/16/2021 Battery Size: 13 Robotics Engineer/Slim Tube: 1M Earmold/Dome/CShell/SlimTip:C-shell canal lock Serial #: [id number] Type of Wax Guard: CeruStop Dispensed By: [facility] Date of Fittin02/17/2020 Left Ear: Dannie, Model, Color, Serial Number: Murali Turner P70-13T SN: [id number] Color: [place] Net Lead Developer Repair Warranty: 04/29/2023 Net Lead Developer Loss and Damage Warranty: 04/29/2023 [facility] Service Plan: 02/16/2021 Battery Size: 13 Robotics Engineer/Slim Tube: 1M Earmold/Dome/CShell/SlimTip: C-shell canal lock Serial #: [id number] Type of Wax Guard: CeruStop Dispensed By: [facility] Date of Fittin02/17/2020 Follow-Up Summary: Carlee provided an updated hearing test from [facility] dated 05/15/2022 which showed a slight decrease in the low frequencies. Reprogrammed her hearing aids using real ear measures. Comfortable at real ear settings and noted improvement in sound quality in office. Also adjusted noise management settings in speech in noise and comfort in noise programs due to reported difficulty in background noise. Recommendations: Hearing instrument follow-up or maintenance as needed. Diagnosis Code(s): Primary Diagnosis: H90.3 Bilateral Sensorineural Hearing Loss Signature: Provider: Jesus Peoples, [facility]
== END 2022-07-18 13:26 | disposition home or self-care (01) ==
LOC: HO.HAP 13:25
PROVIDERS: Visit Provider Internal Medicine
DX: Z46.1 Encounter for fitting and adjustment of hearing aid (principal); H90.3 Sensorineural hearing loss, bilateral
CPT/HCPCS: V5020; V5266

== ENCOUNTER 2022-12-23 10:41 | Outpatient (REF) | payer MEDICARE, MEDICAID, SELFPAY | END 2022-12-23 10:42 | disposition home or self-care (01) | LOC: HO.HAP 10:41 | PROVIDERS: Visit Provider Internal Medicine | DX: Z46.1 Encounter for fitting and adjustment of hearing aid (principal); H90.3 Sensorineural hearing loss, bilateral | CPT/HCPCS: V5266 ==

== ENCOUNTER 2022-12-23 10:44 | Outpatient (REF) | payer SELFPAY | END 2022-12-23 10:45 | disposition home or self-care (01) | LOC: HO.HAP 10:44 | PROVIDERS: Visit Provider Internal Medicine | DX: Z46.1 Encounter for fitting and adjustment of hearing aid (principal); H90.3 Sensorineural hearing loss, bilateral | CPT/HCPCS: V5267 ==

== ENCOUNTER 2023-03-25 06:44 | Emergency (ER) | payer MEDICARE, MEDICAID, SELFPAY ==
--- NOTE | ~2023-03-25 | XR_ITS ---
EXAMINATION: XR HAND, LEFT CLINICAL INFORMATION: Left hand pain COMPARISON: None available. TECHNIQUE: PA, lateral, and oblique views of the left hand. FINDINGS: Moderate degenerative changes are seen at the interphalangeal joints, distal greater than proximal, with joint space narrowing, osteophyte formation and subchondral cyst formation. Some periarticular calcifications are noted as well. The MCP joints appear unremarkable. The wrist appears unremarkable. XR/XR hand LT 2V IMPRESSION: Moderate degenerative changes involving the interphalangeal joints.
[2023-03-25 06:49] VITALS: BP 179/64; PULSE 53; RESP 16; TEMP 36.1; O2SAT 100; BMI 30.1
[2023-03-25 07:14] LABS: Hematocrit 39.2 % (37.0-47.0); Hemoglobin 13.3 g/dl (12.0-16.0); Mean Corpuscular HGB Conc 33.9 g/dl (31.0-35.0); Mean Corpuscular Hemoglobin 32.3 pg (27.0-33.0); Mean Corpuscular Volume 95.1 fL (80.0-98.0); Red Blood Count 4.12 X10*6/uL (4.20-5.50); Red Cell Distribution Width 12.2 % (11.0-16.0); White Blood Count 4.5 X10*3/uL (4.8-10.8)
[2023-03-25 07:26] LABS: Alanine Aminotransferase 16 U/L (0-31); Albumin Level 4.1 g/dL (3.5-5.0); Alkaline Phosphatase 77 U/L (39-117); Anion Gap 13 (12-20); Aspartate Amino Transferase 14 U/L (5-31); Bilirubin Total 0.6 mg/dL (0.0-1.0); Blood Urea Nitrogen 14 mg/dL (9-16); Calcium 9.5 mg/dL (8.4-10.2); Carbon Dioxide 28 mmol/L (22-29); Chloride 105 mmol/L (96-108); Creatinine Clr Calc Pharmacy 88.4; Estimated Glomerular Filt Rate > 60; Glucose Random 113 mg/dL (60-115); Potassium 4.5 mmol/L (3.3-5.1); Sodium 141 mmol/L (135-145)
--- NOTE | 2023-03-25 07:44 | ED.EXTPRO ---
HPI - Extremity Problem General Chief complaint: Extremity Injury, Upper Stated complaint: L hand pain/swelling Time Seen by Provider: 03/25/23 07:27 Source: patient Mode of arrival: ambulatory Limitations: no limitations History of Present Illness HPI Narrative: 67-year-old female right hand dominant came in with left hand pain, swelling, tenderness mostly on the dorsum aspect of the 1st webspace. Decline any animal bite or insect bite, no trauma to the left hand, no strenuous activity. Related Data Previous Rx's Medication Instructions Recorded oxycodone-acetaminophen 2.5 mg-325 1 tab PO TID PRN pain #9 tabs 08/16/20 mg tablet (Percocet) prednisone 20 mg tablet 40 mg (2 x 20 mg) PO DAILY #10 tabs 08/16/20 tamsulosin 0.4 mg capsule (Flomax) 0.4 mg PO DAILY #10 caps 08/16/20 oxycodone 5 mg tablet 2.5 mg (1/2 x 5 mg) PO Q6H PRN 08/17/20 pain #10 tabs cephalexin 500 mg tablet 500 mg PO QID 7 days #28 tabs 08/07/21 doxycycline hyclate 100 mg capsule 100 mg PO BID 7 days #14 caps 08/07/21 ibuprofen 600 mg tablet 600 mg PO Q6H PRN pain #20 tabs 08/07/21 oxycodone 5 mg tablet 5 mg PO Q6H PRN pain #14 tabs 08/07/21 doxycycline hyclate 100 mg tablet 100 mg PO BID #14 tabs 03/25/23 Allergies Allergy/AdvReac Type Severity Reaction Status Date / Time No Known Allergies Allergy Verified 08/16/20 20:24 [No Known Allergies*] Review of Systems Review of Systems: all other systems are reviewed and are negative Constitutional: Reports as per HPI and Reports no additional constitutional complaints Eyes: Reports as per HPI and Reports no additional eye complaints Reports system reviewed and no additional complaints, except as documented Cardiovascular: Reports as per HPI and Reports no additional cardiovascular complaints Respiratory: Reports as per HPI and Reports no additional respiratory complaints Gastrointestinal: Reports as per HPI and Reports no additional gastrointestinal complaints Genitourinary: Reports no additional female genitourinary complaints Musculoskeletal: Reports no additional musculoskeletal complaints Skin/Breast: Reports system reviewed and no additional complaints, except as docu Psychiatric: Reports no additional psychiatric complaints Endocrine: Reports no additional endocrine complaints Hematologic/Lymphatic: Reports no additional hematologic/lymphatic complaints Allergic/Immunologic: Reports no additional allergic/immunologic complaints Reports system reviewed and no additional complaints, except as documented and Reports Abnormal speech present [facility] Past Medical History Medical History Hypothyroid Hypertension Social History Social History Alcohol intake: never Advance Directives: No Physical Exam Vital Signs: Vital Signs: Last Vital Signs Temp 97.0 F 03/25/23 06:49 Pulse 53 03/25/23 06:49 Resp 16 03/25/23 06:49 BP 179/64 H 03/25/23 06:49 Pulse Ox 100 03/25/23 06:49 O2 Del Method Room Air 03/25/23 06:49 BMI result Body Mass Index 30.1 Vital signs have been reviewed and appear to be correct. Blood pressure elevated. Heart rate normal. Respiratory rate normal. Temperature normal. Oxygen saturation normal. Appearance: Alert. Oriented X3. No acute distress. Head: Normal external exam. Normocephalic. Atraumatic. No Gant signs noted. No raccoon eyes noted Eyes: PERRLA. EOMI. Conjunctiva and sclera normal. Eyelids normal. ENT: TM's Normal. Pharynx normal. Uvula midline. Moist mucous membranes. No trismus noted. No drooling noted. No muffled voice noted. Neck: Normal inspection. Neck supple. FROM. No adenopathy. Thyroid Normal. No meningeal signs. No neck mass noted. CVS: Normal heart rate and rhythm. Heart sound normal. No murmurs noted. Pulses normal throughout. Respiratory: No respiratory distress. Painless inspiration. Breath sounds normal. No wheezes/rales/rhonchi noted. Chest nontender. No accessory muscle usage noted or decreased air movement noted. Abdomen: Soft and nontender. Bowel sounds normal in all 4 quadrants. No distention noted. No organomegaly noted. No visible injury noted. Back: No CVA tenderness. Full range of motion noted. Skin: Skin warm and dry. Normal skin color. Normal skin turgor. No rashes/lesions/lacerations noted. Extremities: left hand: Area of tenderness on the dorsum of the left hand in the 1st webspace, with 2 x 3 cm area of redness and underlying solid small mass, no active bleeding. Neuro: Oriented X 3. Cranial nerve exam: II-XII are grossly intact No motor deficit. No sensory deficit. Reflexes normal. Course Course Course Narrative: This 67-year-old female with pain and tenderness over the 1st left web site, attempt for a needle aspiration was done with no drainage, will start the patient on doxycycline and warm water soaking at home patient was instructed to return if any worsening or fever or chills. Medical Decision Making Differential Diagnosis Differential Diagnoses: The differential diagnosis associated with the presentation includes ( Left hand abscess, cellulitis, osseous fracture, electrolyte abnormality, severe anemia.) Admission/Observation Consideration of admission/observation: Escalation of care including admission/observation considered Lab Data MDM Lab Attestation statement: I reviewed the patient's lab results. 03/25/23 07:06 03/25/23 07:06 Labs: Lab Results 03/25/23 Range/Units 07:06 WBC 4.5 L (4.8-10.8) X10*3/uL RBC 4.12 L (4.20-5.50) X10*6/uL Hgb 13.3 (12.0-16.0) g/dl Hct 39.2 (37.0-47.0) % MCV 95.1 (80.0-98.0) fL MCH 32.3 (27.0-33.0) pg MCHC 33.9 (31.0-35.0) g/dl RDW 12.2 (11.0-16.0) % Absolute Nucleated RBC 0.000 (0.0-0.012) X10*3/uL Nucleated RBC % (auto) 0.0 (0.0-0.2) /100WBC Sodium 141 (135-145) mmol/L Potassium 4.5 D (3.3-5.1) mmol/L Chloride 105 (96-108) mmol/L Carbon Dioxide 28 (22-29) mmol/L Anion Gap 13 (12-20) BUN 14 (9-16) mg/dL Creatinine 0.69 (0.5-1.4) mg/dL Estim Creat Clear Calc 88.4 Estimated GFR > 60 Random Glucose 113 (60-115) mg/dL Calcium 9.5 (8.4-10.2) mg/dL Total Bilirubin 0.6 (0.0-1.0) mg/dL AST 14 (5-31) U/L ALT 16 (0-31) U/L Alkaline Phosphatase 77 (39-117) U/L Total Protein 7.0 (6.5-8.0) g/dL Albumin 4.1 (3.5-5.0) g/dL Independent Interpretation I performed an independent interpretation of an: Plain X-Ray ( Left hand: No acute pathology.) Radiology Impression Discussion of test interpretation with radiology: I have reviewed the radiologist's reading. Discharge Plan Discharge Clinical Impression: Hand pain, left Patient Disposition: Home, Self-Care Instructions: Cellulitis (ED) Prescriptions: New doxycycline hyclate 100 mg tablet 100 mg PO BID Qty: 14 0RF No Action oxycodone-acetaminophen [Percocet] 2.5-325 mg tablet 1 tab PO TID PRN (Reason: pain) Qty: 9 0RF Rx Instructions: side effect is drowsiness. Do not take at work or while driving. tamsulosin [Flomax] 0.4 mg capsule 0.4 mg PO DAILY Qty: 10 0RF prednisone 20 mg tablet 40 mg PO DAILY Qty: 10 0RF oxycodone 5 mg tablet 2.5 mg PO Q6H PRN (Reason: pain) Qty: 10 0RF oxycodone 5 mg tablet 5 mg PO Q6H PRN (Reason: pain) Qty: 14 0RF cephalexin 500 mg tablet 500 mg PO QID 7 Days Qty: 28 0RF doxycycline hyclate 100 mg capsule 100 mg PO BID 7 Days Qty: 14 0RF ibuprofen 600 mg tablet 600 mg PO Q6H PRN (Reason: pain) Qty: 20 0RF Referrals: Tenzin Arreaga III, MD [Primary Care Provider] -
[2023-03-25 08:23] LABS: Platelet Count 80 X10*3/uL (160-400)
[2023-03-25 08:24] LABS: Mean Platelet Volume 12.7 fL (9.4-12.3)
== END 2023-03-25 09:27 | disposition home or self-care (01) ==
PROVIDERS: Emergency Provider Emergency Medicine; PCP Internal Medicine
DX: M79.642 Pain in left hand (principal); M79.89 Other specified soft tissue disorders; Z79.899 Other long term (current) drug therapy
CPT/HCPCS: 36415; 73120; 80053; 85027; 99283; 99284

== ENCOUNTER 2023-05-29 12:50 | Outpatient (REF) | payer SELFPAY ==
--- NOTE | 2023-05-29 13:17 | MHC.AU.HA3 ---
Hearing Instrument Follow-Up- Binaural Date of Visit: 05/29/23 Right Ear: Dannie, Model, Color, Serial Number: Ajitesheri [id number] SN: [id number] Color: [place] Automatic Operator Repair Warranty: 04/29/2023 Automatic Operator Loss and Damage Warranty: 04/29/2023 [facility] Service Plan: 02/16/2021 Battery Size: 13 Base Wad Operator Adjuster/Slim Tube: 1M Earmold/Dome/CShell/SlimTip:C-shell canal lock SN: [id number] Type of Wax Guard: CeruStop Dispensed By: [facility] Date of Fittin02/17/2020 Left Ear: Dannie, Model, Color, Serial Number: Murali Turner P70-13T SN: [id number] Color: [place] Automatic Operator Repair Warranty: 04/29/2023 Automatic Operator Loss and Damage Warranty: 04/29/2023 [facility] Service Plan: 02/16/2021 Battery Size: 13 Base Wad Operator Adjuster/Slim Tube: 1M Earmold/Dome/CShell/SlimTip: C-shell canal lock SN: [id number] Type of Wax Guard: CeruStop Dispensed By: [facility] Date of Fittin02/17/2020 Follow-Up Summary: Carlee reported her left hearing aid is not working. Wax noted in ear mold behind wax guard. When trying to remove wax guard, the gasket that is typically attached to the ear mold to hold the wax guard in place came out with the wax guard and a significant amount of wax was occluding the senior java software engineer in the ear mold. Able to clean out wax from the ear mold. Glued gasket back into place and able to properly change wax guard. A listening check demonstrated the hearing aid is now amplifying clearly. Also cleaned right hearing aid and ear mold. Replaced wax guard. Vacuumed microphones. Discussed possibility of new left c-shell if issue persists. Quoted $185.00. Also explained that hearing aids are no longer under warranty and with new insurance, hearing aid services are no longer covered. No charge today as courtesy. However, Carlee knows any future visits will incur fee. Recommendations: Hearing instrument follow-up or maintenance as needed. Please contact our clinic with any questions or concerns. Diagnosis Code(s): Primary Diagnosis: H90.3 Bilateral Sensorineural Hearing Loss Signature: Provider: Jesus Peoples, [facility]
== END 2023-05-29 12:51 | disposition home or self-care (01) ==
LOC: HO.HAP 12:50
PROVIDERS: Visit Provider Internal Medicine
DX: Z46.1 Encounter for fitting and adjustment of hearing aid (principal); H90.3 Sensorineural hearing loss, bilateral
CPT/HCPCS: V5266; V5267

== ENCOUNTER 2023-08-31 12:22 | Outpatient (REF) | payer SELFPAY | END 2023-08-31 12:23 | disposition home or self-care (01) | LOC: HO.HAP 12:22 | PROVIDERS: Visit Provider Internal Medicine | DX: Z46.1 Encounter for fitting and adjustment of hearing aid (principal); H90.3 Sensorineural hearing loss, bilateral | CPT/HCPCS: V5266; V5267 ==

== ENCOUNTER 2023-12-08 12:51 | Outpatient (REF) | payer SELFPAY | END 2023-12-08 12:52 | disposition home or self-care (01) | LOC: HO.HAP 12:51 | PROVIDERS: Visit Provider Internal Medicine | DX: Z46.1 Encounter for fitting and adjustment of hearing aid (principal); H90.3 Sensorineural hearing loss, bilateral | CPT/HCPCS: V5266 ==

== ENCOUNTER 2024-02-15 13:13 | Outpatient (REF) | payer SELFPAY | END 2024-02-15 13:14 | disposition home or self-care (01) | LOC: HO.HAP 13:13 | PROVIDERS: Visit Provider Internal Medicine | DX: Z46.1 Encounter for fitting and adjustment of hearing aid (principal); H90.3 Sensorineural hearing loss, bilateral | CPT/HCPCS: V5266; V5267 ==

== ENCOUNTER 2024-03-03 12:58 | Outpatient (REF) | payer SELFPAY | END 2024-03-03 12:59 | disposition home or self-care (01) | LOC: HO.HAP 12:58 | PROVIDERS: Visit Provider Internal Medicine | DX: Z46.1 Encounter for fitting and adjustment of hearing aid (principal); H90.3 Sensorineural hearing loss, bilateral | CPT/HCPCS: 92700; V5264 ==

== ENCOUNTER 2024-06-27 12:58 | Outpatient (REF) | payer SELFPAY | END 2024-06-27 12:59 | disposition home or self-care (01) | LOC: HO.HAP 12:58 | PROVIDERS: Visit Provider Internal Medicine | DX: Z46.1 Encounter for fitting and adjustment of hearing aid (principal) | CPT/HCPCS: V5266 ==

== ENCOUNTER 2024-08-16 11:58 | Outpatient (REF) | payer SELFPAY ==
--- OUTSIDE RECORDS SUMMARY | 2024-08-16 13:06 | XMS_ITS | Clinical Summary ---
Author Organization [facility] [address] [facility] Address [address] [place] [address] Phone Care Team Providers Care Dental Appliance Mechanic Name Role Phone Tenzin Arreaga MD Primary Care Provider [phone] Allergies No known active allergies Medications betamethasone, augmented, (DIPROLENE-AF) 0.05 % cream Apply to eczematous patches daily as needed, for no longer than a 2-3 week period, then only on Sat/Sun 06/07/20 20 Active clobetasoL (TEMOVATE) 0.05 % cream APPLY TO AFFECTED AREA(S) 2-3 TIMES DAILY FOR NO MORE THAN 2-3 WEEKS,THEN ONLY USE ON WEEKENDS NEEDED 06/06/20 20 Active hydrocortisone 2.5 % cream Apply to area bid 07/29/19 23 Active levothyroxine (SYNTHROID, LEVOTHROID) 150 mcg tablet Take 1 tablet (150 mcg total) by mouth 1 (one) time each day. 90 tablet 1 05/05/20 24 Active diclofenac (VOLTAREN) 75 mg EC tablet Take 1 tablet (75 mg total) by mouth 2 (two) times a day if needed (pain). Do not crush, chew, or split. 180 tablet 1 05/05/20 24 025 Active magnesium oxide (MAG-OX) 400 mg magnesium tablet Take 1 tablet (400 mg total) by mouth 1 (one) time each day. 30 tablet 1 07/06/19 25 Active omeprazole (PriLOSEC) [address] capsule TAKE ONE CAPSULE BY MOUTH EVERY DAY 90 capsule 1 08/04/19 25 Active atenoloL (TENORMIN) 50 mg tablet TAKE ONE TABLET BY MOUTH EVERY DAY 90 tablet 1 08/04/19 25 Active hydroCHLOROthi azide (HYDRODIURIL) 25 mg tablet TAKE ONE TABLET BY MOUTH EVERY DAY 90 tablet 1 08/04/19 25 Active cholecalcifero l (VITAMIN D-3) 50 mcg (2,000 unit) tablet TAKE ONE TABLET BY MOUTH EVERY DAY 90 tablet 1 08/04/19 25 Active omeprazole (PriLOSEC) [address] capsule TAKE ONE CAPSULE BY MOUTH EVERY DAY 90 capsule 1 05/04/20 24 025 Discontinued cholecalcifero l (VITAMIN D-3) 50 mcg (2,000 unit) tablet TAKE ONE TABLET BY MOUTH EVERY DAY 90 tablet 1 05/04/20 24 025 Discontinued atenoloL (TENORMIN) 50 mg tablet Take 1 tablet (50 mg total) by mouth 1 (one) time each day. 90 tablet 1 05/05/20 24 025 Discontinued hydroCHLOROthi azide (HYDRODIURIL) 25 mg tablet Take 1 tablet (25 mg total) by mouth 1 (one) time each day. 90 tablet 1 05/05/20 24 025 Discontinued Active Problems Problem Noted Date Diagnosed Date Severe obesity (BMI 35.0-35.9 with comorbidity) 03/29/2024 Lesion of parotid gland 02/13/2022 Overview (03/29/2024): CT Neck 01/2022: Stone. No lymphadnopathy. Referred to ENT. Mixed hyperlipidemia 02/07/2022 Chronic venous insufficiency 12/16/2018 DDD (degenerative disc disease), lumbosacral Overview (03/29/2024): MRI 02/2015 Sensorineural hearing loss (SNHL) of both ears 0 12/16/2018 Varicose veins of legs 12/16/2018 Osteoarthritis 04/07/2017 GERD (gastroesophageal reflux disease) 4 Eczema 10/25/2012 Hypertension 01/27/2012 Hypothyroid 01/27/2012 Encounters Date Type Department Care Team Description 08/08/2024 1:01 PM EST - 08/08/2024 11:59 PM EST Hospital Encounter Radiology Department - [address] [phone] Encounter for screening mammogram for breast cancer Discharge Disposition: Home or Self Care 07/06/2024 Telephone Adult Medicine [facility] - [address] [phone] Tenzin Arreaga MD 06/03/2024 Telephone Lung Screening Program - [address] [phone] Gisela Alonso [place] Appointment (, 06/16/24 at 1:15PM - Cancelled) from Last 3 Months Immunizations Name Administration Dates Next Due Pneumococcal polysaccharide 23 valent (Pneumovax 23) 2yo and older 05/16/2019 Tdap Tetanus diptheria acell ular pertussis (Boostrix; Adacel) 7yo and older 02/06/2012 Surgical History Surgery Date Site/Laterality Comments EYE SURGERY PROCEDURE: HISTORICAL EYE SURGERY COLONOSCOPY 05/21/2010 PROCEDURE: HISTORICAL COLONOSCOPY; COMMENT: Slitzki; diverticulosis. COLONOSCOPY 11/11/2016 PROCEDURE: HISTORICAL COLONOSCOPY; COMMENT: 3 mm sigmoid colon polyp: Tubular adenoma. OTHER SURGICAL HISTORY 05/07/2016 Left PROCEDURE: HISTORY OTHER; COMMENT: Endovenous Ablation & Microphlebectomy COLONOSCOPY 03/05/2022 PROCEDURE: HISTORICAL COLONOSCOPY; COMMENT: diverticulosis Medical History Medical History Date Comments Hypertension DX:Hypertension Hypothyroid DX:Hypothyroid Graves disease 02/02/2012 DX:Graves diseas e Other specified personal his tory presenting hazards to health(V15.89) DX:Other specifie d personal history presenting hazards to health(V15.89); COMMENT: skin ca DDD (degenerative disc disea se), lumbosacral 12/16/2018 DX:DDD (degenerative disc di sease), lumbosacral; COMMENT: MRI 02/2015 Sensorineural hearing loss ( SNHL) of both ears 12/16/2018 DX:Sensorineural hearing los s (SNHL) of both ears Varicose veins of legs 12/16/2018 DX:Varico se veins of legs Chronic venous insufficiency 12/16/2018 DX: Chronic venous insufficiency Eczema 10/25/2012 DX:Eczema GERD (gastroesophageal reflux disease) 01/09/2014 DX:GERD (gastroesophageal reflux disease) Osteoarthritis 04/07/2017 DX:Osteoarthriti s Severe obesity (BMI 35.0-35. 9 with comorbidity) (CMS/HCC) 06/18/2018 DX:Severe obesity (BMI 35.0- 35.9 with comorbidity) ([facility]) Family History Medical History Relation Name Comments Kidney cancer Brother age 51 Colon cancer Father htn Leukemia Mother age 53 Breast cancer Mother's side great aunt Breast cancer Other mat cousin dx 61 Hypertension Sister 1 hypothyroid Breast cancer Sister 2 55 Hypertension Sister 2 55 hypothyroid Ovarian cancer Neg Hx Relation Name Status Comments Brother Father Mother Mother's side great aunt Other mat cousin dx 61 Alive Sister 1 Sister 2 55 Social History Tobacco Use Types Packs/Day Years Used Date Smoking Tobacco: Former Cigarettes Q uit: 06/29/2008 Smokeless Tobacco: Never Tobacco Cessation:Counseling Given: Not Answered Alcohol Use Standard Drinks/Week Comments Yes 0 (1 standard drink = 0.6 oz pur e alcohol) Comments Unknown Sex and Gender Information Value Date Recorded Sex Assigned at Not on file Legal Sex Female 10:59 PM EST Gender Identity Not on file Sexual Orientation Not on file Obstetrics History Para Term AB IAB SAB Ectopic Multiple Livin g Live Births 0 0 0 Last Filed Vital Signs Vital Sign Reading Time Taken Comments Blood Pressure 130/68 05/05/2024 2:23 PM EST Pulse 63 05/05/2024 2:23 PM EST Temperature 36.3 ??C (97.4 ??F) 05/05/2024 2:23 PM ES T Respiratory Rate 16 05/05/2024 2:23 PM EST Oxygen Saturation - - Inhaled Oxygen Concentration - - Weight 87.5 kg (192 lb 12.8 oz) 05/05/2024 2:23 PM EST Height 170.2 cm (5' 7 ) 05/05/2024 2:23 PM EST Body Mass Index 30.2 05/05/2024 2:23 PM EST Plan of Treatment Upcoming Encounters Date Type Department Care Team (Late st Contact Info) Description 11/22/2024 1:15 PM EDT Office Visit Adult Medicine [address] [phone] Tenzin Arreaga MD [address] [place] [phone] Health Maintenance Due Date Last Done Comments Zoster Vaccines (1 of 2) 1973 RSV Immunization Patients 60+ Years Old (1 - Risk 60-74 years 1-dose series) 2014 Pneumococcal Vaccine: 50+ Years (2 of 2 - PCV) 05/16/2020 05/16/2019 DTaP,Tdap,and Td Vaccines (2 - Td or Tdap) 02/05/2022 02/06/2012 Medicare Annual Wellness Visit 06/07/2022 Social Influencers of Health Screening 06/07/2022 COVID-19 Vaccine ( season) 2024 06/25/2021, 11/01/2020, 10/04/2020 Influenza Vaccine (#1) 2024 Depression Screening 10/29/2024 10/30/2023 Falls Risk Assessment 10/29/2024 10/30/2023 Hypertension/CHF/CAD Annual BMP Blood Test 05/05/2025 05/05/2024, 10/30/2023, 10/30/2023 Breast Cancer Screening 08/08/2026 08/08/19 25, 07/31/2023, 07/30/2022, Additional history exists Colorectal Cancer Screening: Colonoscopy 03/05/2027 03/05/2022 Cholesterol Screening (Lipid Panel) 10/29/2028 10/30/2023, 10/30/2023 Osteoporosis Screening (Bone Density Screening) 02/12/2032 02/11/2022 Hepatitis C Screening Completed 04/07/2017 HIB Vaccines Aged Out No longer eligi ble based on patient's age to complete this topic HPV Vaccines Aged Out No longer eligi ble based on patient's age to complete this topic Hepatitis A Vaccines Aged Out No long er eligible based on patient's age to complete this topic Hepatitis B Vaccines Aged Out No long er eligible based on patient's age to complete this topic IPV Vaccines Aged Out No longer eligi ble based on patient's age to complete this topic MMR Vaccines Aged Out No longer eligi ble based on patient's age to complete this topic Meningococcal ACWY Vaccine Aged Out N o longer eligible based on patient's age to complete this topic Meningococcal B Vacine Aged Out No lo nger eligible based on patient's age to complete this topic RSV Immunization Patients Under 20 months Aged Out No longer eligible based on patient's age to complete this topic Varicella Vaccines Aged Out No longer eligible based on patient's age to complete this topic Procedures Procedure Name Priority Date/Time Associated Diagnosis Comments MG MAMMO DIGITAL SCREENING W DIANNA BILAT Routine 08/08/2024 1:15 PM EST Encounter for screening mammogram for breast cancer BASIC METABOLIC PANEL Routine 05/05/2024 3:38 PM EST Primary hypertension Foot cramps DEPRESSION SCREENING Routine 10/30/2023 FALLS RISK ASSESSMENT Routine 10/30/2023 LIPID PANEL Routine 10/30/2023 COLONOSCOPY Routine 03/05/2022 DXA BONE DENSITY STUDY 1+ SITS AXIAL SKEL Routine 02/11/2022 3:53 PM EDT Encounter for screening for osteoporosis HEPATITIS C SCREENING Routine 04/07/2017 from Last 3 Months or Most Recently Relevant to Health Maintenance Results * MG Mammo Digital Screening w Dianna bilat (08/08/2024 1:15 PM EST) Anatomical Region Laterality Modality Breast Bilateral Mammography 08/09/2024 10:1 7 AM EST Impressions 08/09/2024 10:21 AM EST BILATERAL BREASTS: Negative, no evidence of malignancy. Normal interval follow- up is recommended in 12 months. BREAST DENSITY: C - The breasts are heterogeneously dense which may obscure small masses. BI-RADS CATEGORY: 1 - NEGATIVE RECOMMENDATION: Screening bilateral mammogram is recommended in 1 year. Mammo Location: [facility], [address] [place] [address], [id number], . -------- FINAL REPORT -------- Dictated By: Bety Colmenares Dictated Date: 08/09/2024 10:17 ET Assigned Physician: Bety Colmenares Reviewed and Electronically Signed By: Bety Colmenares Signed Date: 08/09/2024 10:21 ET Workstation ID: [id number] Transcribed By: Self Edit Transcribed Date: 08/09/2024 10:17 ET Narrative 08/09/2024 10:21 AM EST STUDY: Bilateral screening mammography with tomosynthesis and CAD TECHNIQUE: Bilateral full-field digital screening mammography is obtained and read in conjunction with computer-aided detection. ??Tomosynthesis as well as 2-D C view imaging were obtained. ?? COMPARISON: Comparison made to multiple prior, most recent July 31, 2023, and most remote February 20, 2015. BILATERAL BREASTS: No significant masses, suspicious calcifications or other abnormalities are seen. Procedure Note Bety Colmenares MD - 08/09/2024 STUDY: Bilateral screening mammography with tomosynthesis and CAD TECHNIQUE: Bilateral full-field digital screening mammography is obtainedand read in conjunction with computer-aided detection. Tomosynthesis aswell as 2-D C view imaging were obtained. COMPARISON: Comparison made to multiple prior, most recent July, and most remote February 20, 2015. BILATERAL BREASTS: No significant masses, suspicious calcifications orother abnormalities are seen. IMPRESSION: BILATERAL BREASTS: Negative, no evidence of malignancy. Normal intervalfollow-up is recommended in 12 months. BREAST DENSITY: C - The breasts are heterogeneously dense which mayobscure small masses. BI-RADS CATEGORY: 1 - NEGATIVE RECOMMENDATION: Screening bilateral mammogram is recommended in 1 year. Mammo Location: [facility], [address] [place] [address], [phone], . -------- FINAL REPORT -------- Dictated By: Bety Colmenares Dictated Date: 08/09/2024 10:17 ET Assigned Physician: Bety Colmenares Reviewed and Electronically Signed By: Bety Colmenares Signed Date: 08/09/2024 10:21 ET Workstation ID: [id number] Transcribed By: Self Edit Transcribed Date: 08/09/2024 10:17 ET us Tenzin Arreaga MD IMG BI PROCEDURES Final Result * (ABNORMAL) Basic metabolic panel (05/05/2024 3:38 PM EST) Sodium 142 133 - 145 mmol/L LAB CHEMISTRY METHOD 05/05/2024 6:46 PM [facility] Potassium 3.5 3.5 - 5.5 mmol/L LAB CHEMISTRY METHOD 05/05/2024 6:46 PM [facility] Chloride 107 96 - 110 mmol/L LAB CHEMISTRY METHOD 05/05/2024 6:46 PM [facility] CO2 30 21 - 32 mmol/L LAB CHEMISTRY METHOD 05/05/2024 6:46 PM [facility] Anion Gap 5 3 - 11 LAB CHEMISTRY METHOD 05/05/2024 6:46 PM [facility] Glucose 106(H) 70 - 100 mg/dL LAB CHEMISTRY METHOD 05/05/2024 6:46 PM [facility] BUN 28(H) 5 - 25 mg/dL LAB CHEMISTRY METHOD 05/05/2024 6:46 PM [facility] Creatinine 1.12(H) 0.50 - 1.10 mg/dL LAB CHEMISTRY METHOD 05/05/2024 6:46 PM [facility] eGFR 53(L) >=60 mL/min/1. 73m2 LAB CHEMISTRY METHOD 05/05/2024 6:46 PM [facility] Comment:Calculation based on the??Chronic Kidney Disease Epidemiology Collaboration (CKD-EPI) equation refit??without adjustment for race. BUN/Creatinine Ratio 25.0 LAB CHEMISTRY METHOD 05/05/2024 6:46 PM EST [facility] Calcium 10.0 8.5 - 10.5 mg/dL LAB CHEMISTRY METHOD 05/05/2024 6:46 PM EST [facility] Blood Venous blood specimen / Unknown Venipuncture / Unknown 05/05/2024 3:38 PM EST 05/05/2024 3:38 PM EST Tenzin Arregaa MD LAB BLOOD ORDERABLES Final Resu lt [facility] [address] [place] [address], * Falls Risk Assessment (10/30/2023) Pathologist [facility] Falls Risk Assessment Abstracted [facility] Provider HEALTH MAINTENANCE Final Result * Depression Screening (10/30/2023) Pathologist [facility] Depression Screening Abstracted Historical Provider HEALTH MAINTENANCE Final Result * (ABNORMAL) Lipid panel (10/30/2023) [facility] LDL/HDL Ratio 2 0 - 4 Triglycerides 81 0 - 150 mg/dL Cholesterol 221(A) 0 - 200 mg/dL HDL 104 >=40 mg/dL LDL Cholesterol 101(A) 0 - 100 mg/dL Blood Venous blood specimen / Unknown Result [facility] Provider LAB BLOOD ORDERABLES Mikaela l Result * Colonoscopy (03/05/2022) Pathologist [facility] Colonoscopy Abstracted, no interpretation Anatomical Region Laterality Modality Other [facility] Provider HEALTH MAINTENANCE Final Result * DXA BONE DENSITY STUDY 1+ SITS AXIAL SKEL (02/11/2022 3:53 PM EDT) Anatomical Region Laterality Modality Bone Densitometr y 02/07/2022 9:03 AM EDT Narrative 02/11/2022 5:43 PM EDT BONE DENSITY ? Lumbar Spine T-score is +1.0 ?? (SD relative to 20-29 y/o adult) Z-score is +2.9 ??(SD relative to age matched peers) This is normal by criteria defined by the WHO. Left Hip T-score is +0.7 Z-score is +2.3 This is normal by criteria defined by the WHO. Impression: Based on the World Health Organization criteria, Carlee Velázquez should be classified as having normal bone density. [facility] Department of Internal Medicine recommends using National Osteoporosis Foundation (NOF) guidelines in treatment decisions related to osteoporosis. NOF guidelines suggest considering treatment for postmenopausal women and men aged 50 or older presenting with the following: History of hip or vertebral fracture. T-score less than or equal to -2.5 (DXA) at the femoral neck, total hip, or spine, after appropriate evaluation to exclude secondary causes. Low bone mass (T-score between -1.0 and -2.5 at the femoral neck or spine) AND a 10-year probability of a hip fracture greater than or equal to 3% OR a 10-year probability of a major osteoporosis-related fracture greater than or equal to 20% based on the [place]-adapted WHO algorithm Please note that all treatment decisions require clinical judgment and consideration of individual patient factors, including patient preferences, co-morbidities, previous drug use, risk factors not captured in the FRAX model (e.g., frailty, falls, vitamin D deficiency, increased bone turnover, interval significant decline in bone density) and possible under- or over-estimation of fracture risk by FRAX. Procedure Note Estrella Henao MD - 06/17/2022 BONE DENSITY Lumbar Spine T-score is +1.0 (SD relative to 20-29 y/o adult) Z-score is +2.9 (SD relative to age matched peers) This is normal by criteria defined by the WHO. Left Hip T-score is +0.7 Z-score is +2.3 This is normal by criteria defined by the WHO. Impression: Based on the World Health Organization criteria, Carlee Velázquez shouldbe classified as having normal bone density. [facility] Department of Internal Medicine recommendsusing National Osteoporosis Foundation (NOF) guidelines in treatmentdecisions related to osteoporosis. NOF guidelines suggest consideringtreatment for postmenopausal women and men aged 50 or older presentingwith the following: History of hip or vertebral fracture. T-score less than or equal to -2.5 (DXA) at the femoral neck, total hip,or spine, after appropriate evaluation to exclude secondary causes. Low bone mass (T-score between -1.0 and -2.5 at the femoral neck or spine)AND a 10-year probability of a hip fracture greater than or equal to 3% ORa 10-year probability of a major osteoporosis-related fracture greaterthan or equal to 20% based on the [place]-adapted WHO algorithm Please note that all treatment decisions require clinical judgment andconsideration of individual patient factors, including patientpreferences, co-morbidities, previous drug use, risk factors not capturedin the FRAX model (e.g., frailty, falls, vitamin D deficiency, increasedbone turnover, interval significant decline in bone density) and possibleunder- or over-estimation of fracture risk by FRAX. [facility] [place] IM DXA PROCEDURES Final Resu lt * Hepatitis C Screening (04/07/2017) [facility] Hepatitis C Screening Abstracted Historical Provider HEALTH MAINTENANCE Final Result from Last 3 Months or Most Recently Relevant to Health Maintenance Insurance MEDICARE MEDICAID - [place] Care Teams Dental Appliance Mechanic Relationship Specialty Start Date End Date Tenzin Arreaga MD [address] [place] [phone] PCP - General Internal Medicine 05/03/24
--- OUTSIDE RECORDS SUMMARY | 2024-08-16 13:06 | XMS_ITS | Encounter Summary ---
Author Organization [facility] Address [address] [place] [address] Care Team Providers Care Switch Engineer Name Role Phone Tenzin Arreaga MD Primary Care Provider [phone] Reason for Visit * Imaging (Routine) - Closed Specialty Diagnoses / Procedures Referred By Carlton almeida Referred To Contact Radiology Diagnoses Encounter for screening mammogram for breast cancer Procedures MG Mammo Digital Screening w Diannasheri elliott MG Mammo Digital Screening w Tenzin Evans MD [address] [place] [phone] Phone: tel: fax: [facility] Referral ID Status Reason Start Date Expiration Date Visits Re quested Visits Authorized [id number] Closed 04/14/2024 04/14/2025 1 1 Encounter Details Date Type Department Care Team (Latest Contact Info) Description 08/08/2024 1:01 PM EST - 08/08/2024 11:59 PM EST Hospital Encounter Radiology Department - [address] [phone] Encounter for screening mammogram for breast cancer Discharge Disposition: Home or Self Care Social History Tobacco Use Types Packs/Day Years Used Date Smoking Tobacco: Former Cigarettes Q uit: 06/29/2008 Smokeless Tobacco: Never Alcohol Use Standard Drinks/Week Comments Yes 0 (1 standard drink = 0.6 oz pur e alcohol) Comments Unknown Sex and Gender Information Value Date Recorded Sex Assigned at Not on file Legal Sex Female 10:59 PM EST Gender Identity Not on file Sexual Orientation Not on file documented as of this encounter Medications at Time of Discharge atenoloL (TENORMIN) 50 mg tablet TAKE ONE TABLET BY MOUTH EVERY DAY 90 tablet 1 08/04/2024 betamethasone, augmented, (DIPROLENE-AF) 0.05 % cream Apply to eczematous patches daily as needed, for no longer than a 2-3 week period, then only on Sat/Sun 06/07/2020 cholecalciferol (VITAMIN D-3) 50 mcg (2,000 unit) tablet TAKE ONE TABLET BY MOUTH EVERY DAY 90 tablet 1 08/04/2024 clobetasoL (TEMOVATE) 0.05 % cream APPLY TO AFFECTED AREA(S) 2-3 TIMES DAILY FOR NO MORE THAN 2-3 WEEKS,THEN ONLY USE ON WEEKENDS NEEDED 06/06/2020 diclofenac (VOLTAREN) 75 mg EC tablet Take 1 tablet (75 mg total) by mouth 2 (two) times a day if needed (pain). Do not crush, chew, or split. 180 tablet 1 05/05/2024 hydroCHLOROthiaz katy (HYDRODIURIL) 25 mg tablet TAKE ONE TABLET BY MOUTH EVERY DAY 90 tablet 1 08/04/2024 hydrocortisone 2.5 % cream Apply to area bid 07/29/2022 levothyroxine (SYNTHROID, LEVOTHROID) 150 mcg tablet Take 1 tablet (150 mcg total) by mouth 1 (one) time each day. 90 tablet 1 05/05/2024 magnesium oxide (MAG-OX) 400 mg magnesium tablet Take 1 tablet (400 mg total) by mouth 1 (one) time each day. 30 tablet 1 07/06/2024 omeprazole (PriLOSEC) [address] capsule TAKE ONE CAPSULE BY MOUTH EVERY DAY 90 capsule 1 08/04/2024 documented as of this encounter Discharge Disposition Disposition Code Departure Means Destination Home or Self Care documented in this encounter Plan of Treatment Upcoming Encounters Date Type Department Care Team (Late st Contact Info) Description 11/22/2024 1:15 PM EDT Office Visit Adult Medicine [facility] [address] [place] [phone] Tenzin Arreaga MD [address] [place] [phone] documented as of this encounter Procedures Procedure Name Priority Date/Time Associated Diagnosis Comments MG MAMMO DIGITAL SCREENING W DIANNA BILAT Routine 08/08/2024 1:15 PM EST Encounter for screening mammogram for breast cancer documented in this encounter Results * MG Mammo Digital Screening w [...] is recommended in 1 year. Mammo Location: [facility], [address] [place] [address], [address], . -------- FINAL REPORT -------- Dictated By: Bety Colmenares Dictated Date: 08/09/2024 10:17 ET Assigned Physician: Bety Colmenares Reviewed and Electronically Signed By: Bety Colmenares Signed Date: 08/09/2024 10:21 ET Workstation ID: [id number] Transcribed By: Self Edit Transcribed Date: 08/09/2024 [...] is recommended in 1 year. Mammo Location: [facility], [address] [place] [address], [phone], . -------- FINAL REPORT -------- Dictated By: Bety Colmenares Dictated Date: 08/09/2024 10:17 ET Assigned Physician: Bety Colmenares Reviewed and Electronically Signed By: Bety Colmenares Signed Date: 08/09/2024 10:21 ET Workstation ID: [id number] Transcribed By: Self Edit Transcribed Date: 08/09/2024 10:17 ET us Tenzin Arreaga MD IMG BI PROCEDURES Final Result documented in this encounter Visit Diagnoses Diagnosis Encounter for screening mammogram for breast cancer documented in this encounter Care Teams Switch Engineer Relationship Specialty Start Date End Date Tenzin Arreaga MD [address] [place] [phone] PCP - General Internal Medicine 05/03/24 documented as of this encounter
== END 2024-08-16 11:59 | disposition home or self-care (01) ==
LOC: HO.HAP 11:58
PROVIDERS: Visit Provider Internal Medicine
DX: Z46.1 Encounter for fitting and adjustment of hearing aid (principal); H90.3 Sensorineural hearing loss, bilateral
CPT/HCPCS: V5267

== ENCOUNTER 2024-08-31 11:52 | Outpatient (REF) | payer SELFPAY ==
--- OUTSIDE RECORDS SUMMARY | 2024-08-31 14:18 | XMS_ITS | Encounter Summary ---
Author Organization [facility] Address [address] [place] [address] Care Team Providers Care Aix Architect Name Role Phone Tenzin Arreaga MD Primary Care Provider [phone] Ev Meng MD Unavailable Reason for Visit * Reason Onset Date Comments refill request 01/08/2024 Encounter Details Date Type Department Care Team Description 01/08/2024 Telephone Adult Medicine [facility] [address] [place] [address] [phone] Tenzin Arreaga MD [address] [place] [address] [phone] refill request Social History Tobacco Use Types Packs/Day Years Used Date Smoking Tobacco: Former Cigarettes 1 40 Q uit: 2009 Smokeless Tobacco: Never Alcohol Use Standard Drinks/Week Comments Yes 0 (1 standard drink = 0.6 oz pur e alcohol) occasional Sex Assigned at Date Recorded Not on file Job Start Date Occupation Industry Not on file Not on file Not on file documented as of this encounter Miscellaneous Notes * Telephone Encounter - Carlee Campoverde M.A. - 01/08/2024 3:10 PM EDT Lab Results Component Value Date NA 142 10/30/2023 K 4.0 10/30/2023 CO2 30 10/30/2023 CL 105 10/30/2023 BUN 23 10/30/2023 CREAT 0.66 10/30/2023 GLU 104 10/30/2023 CA 9.7 10/30/2023 GFR 95 10/30/2023 Last rx 10/09/23 Last appt 10/30/23 Pending appt 05/05/24 * Telephone Encounter - Teri Montes De Oca Timmy - 01/08/2024 2:27 PM EDT Patient would like script to be: E-PRESCRIBED/FAXED TO PHARMACY WHEN WAS THE PATIENT'S LAST APPOINTMENT IN ADULT MEDICINE? 10/30/23 WHEN WAS THE LAST TIME THE PATIENT SAW THEIR PCP? Same as above Does patient have an upcoming appointment? Yes 05/05/24 (THE MEDICATION REQUESTED IS ON THE MED LIST ABOVE) All of the medications requested were on the CURRENT MEDS list Did you check the Pharmacy information above?: YES Patient wants: 90 -day supply Is this a mail order prescription request ? NO If the refill is from a FAXED refill request what is the RX # listed on the fax? N/A Patients current insurance carrier is: [place] / [place] / Product Type: MEDICARE [id number] documented in this encounter Plan of Treatment Not on file documented as of this encounter Visit Diagnoses Not on filedocumented in this encounter Care Teams Aix Architect Relationship Specialty Start Date End Date Tenzin Arreaga MD [address] [place] [address] 43089 PCP - General Internal Medicine 01/13/12 Ev Meng MD [address] [place] [address] 71267 Lung Cancer Needle Process Felt Goods Supervisor 04/25/22 documented as of this encounter
--- OUTSIDE RECORDS SUMMARY | 2024-08-31 14:18 | XMS_ITS | Encounter Summary ---
Author Organization [facility] Address [address] [place] [address] Care Team Providers Care Bell Staff Name Role Phone Tenzin Arreaga MD Primary Care Provider [phone] Ev Meng MD Unavailable Reason for Visit * Reason Onset Date Comments Pain Bladder 01/02/2016 Encounter Details Date Type Department Care Team Description 01/02/2016 Telephone Adult Medicine [facility] [address] [place] [address] [phone] Tenzin Arreaga MD [address] [place] [address] [phone] Pain Bladder Social History Tobacco Use Types Packs/Day Years Used Date Smoking Tobacco: Former Smokeless Tobacco: Never Alcohol Use Standard Drinks/Week Comments Yes 0 (1 standard drink = 0.6 oz pur e alcohol) occ Sex Assigned at Date Recorded Not on file Job Start Date Occupation Industry Not on file Not on file Not on file documented as of this encounter Miscellaneous Notes * Telephone Encounter - Roland Arroyo L.P.NKatlyn - 01/02/2016 2:12 PM EDT Patient C/O of UTI symptoms Frequency urgency Burning No odor No blood in urine C/O of ache in leftside of back Denies temp (didn't take it) Appt today with Dr. Son at 3:30 Patient will increase fluids Reinforced phone consultation and advice Reviewed with the patient S/S to watch for that would require immediate attention If symptoms worsen patient can call the triage nurse or go to the ER if needed can call 911 Patient states he/she is satisfied with information and home care instructions he is able to verbalize the instructions given * Telephone Encounter - Alexis Rivero - 01/02/2016 11:53 AM EDT Symptoms patient is presenting: Patient called looking to get in today. States she has bladder painand has a bladder infection If pain or injury related was it due to an accident at work or from a motor vehicle accident? NO If yes, gather 3rd republican insurance information Date of accident/Injury: n/a How long has patient had these symptoms?: 5 hours PCP: Tenzin Arreaga [facility] / Plan: CC-RADHAMES SILVER TYPE 3 / Product Type: HMO [id number] documented in this encounter Plan of Treatment Not on file documented as of this encounter Visit Diagnoses Not on filedocumented in this encounter Care Teams Bell Staff Relationship Specialty Start Date End Date Tenzin Arreaga MD [address] [place] [address] PCP - General Internal Medicine 01/13/12 Ev Meng MD [address] [place] [address] 75109 Lung Cancer Size Mixer 04/25/22 documented as of this encounter
--- OUTSIDE RECORDS SUMMARY | 2024-08-31 14:18 | XMS_ITS | Encounter Summary ---
Author Organization [facility] Address [address] [place] [address] Care Team Providers Care Jewel Corner Brushing Machine Operator Name Role Phone Tenzin Arreaga MD Primary Care Provider [phone] Reason for Visit * Imaging (Routine) - Closed Specialty Diagnoses / Procedures Referred By Carlton almeida Referred To Contact Radiology Diagnoses Encounter for screening mammogram for breast cancer Procedures MG Mammo Digital Screening w Diannasheri elliott MG Mammo Digital Screening w Tenzin Evans MD [address] [place] [phone] Phone: tel: fax: [facility] Referral ID Status Reason Start Date Expiration Date Visits Re quested Visits Authorized [id number] Closed 04/14/2024 04/14/2025 1 1 Encounter Details Date Type Department Care Team (Latest Contact Info) Description 08/08/2024 1:01 PM EST - 08/08/2024 11:59 PM EST Hospital Encounter Radiology Department - [address] [phone] Encounter for screening mammogram for breast cancer [...] 1:15 PM EDT Office Visit Adult Medicine [facility] [address] [place] [phone] Tenzin Arreaga MD [address] [place] [address] [phone] documented as of this encounter Procedures Procedure [...] is recommended in 1 year. Mammo Location: [facility], [address] [place] [address], [phone], . -------- FINAL REPORT -------- Dictated By: Bety Colmenares Dictated Date: 08/09/2024 10:17 ET Assigned Physician: Bety Colmenares Reviewed and Electronically Signed By: Bety Comlenares Signed Date: 08/09/2024 10:21 ET Workstation ID: [id number] Transcribed By: Self Edit Transcribed Date: 08/09/2024 [...] is recommended in 1 year. Mammo Location: [facility], [address] [place] [address], [address], . -------- FINAL REPORT -------- Dictated By: Bety Colmenares Dictated Date: 08/09/2024 10:17 ET Assigned Physician: Bety Colmenares Reviewed and Electronically Signed By: Bety Colmenares Signed Date: 08/09/2024 10:21 ET Workstation ID: [id number] Transcribed By: Self Edit Transcribed Date: 08/09/2024 10:17 ET us Tenzin Arreaga MD IMG BI PROCEDURES Final Result documented in this encounter Visit Diagnoses Diagnosis Encounter for screening mammogram for breast cancer documented in this encounter Care Teams Jewel Corner Brushing Machine Operator Relationship Specialty Start Date End Date Tenzin Arreaga MD [address] [place] [address] PCP - General Internal Medicine 05/03/24 documented as of this encounter
--- OUTSIDE RECORDS SUMMARY | 2024-08-31 14:18 | XMS_ITS | Encounter Summary ---
Author Organization [facility] Address [address] [place] [address] Care Team Providers Care Data Deliverables Manager Name Role Phone Tenzin Arreaga MD Primary Care Provider [phone] Ev Meng MD Unavailable Encounter Details Date Type Department Care Team Description 07/04/2016 Television Repairman Report Medical Records [address] [place] [address] Lino Pardo MD Social History Tobacco Use Types Packs/Day Years Used Date Smoking Tobacco: Former Smokeless Tobacco: Never Alcohol Use Standard Drinks/Week Comments Yes 0 (1 standard drink = 0.6 oz pur e alcohol) occ Sex Assigned at Date Recorded Not on file Job Start Date Occupation Industry Not on file Not on file Not on file documented as of this encounter Plan of Treatment Not on file documented as of this encounter Visit Diagnoses Not on filedocumented in this encounter Care Teams Data Deliverables Manager Relationship Specialty Start Date End Date Tenzin Arreaga MD [address] [place] [address] PCP - General Internal Medicine 01/13/12 Ev Meng MD [address] [place] [address] Lung Cancer Crane Chaser 04/25/22 documented as of this encounter
--- OUTSIDE RECORDS SUMMARY | 2024-08-31 14:18 | XMS_ITS | Encounter Summary ---
Author Organization [facility] Address [address] [place] [address] Care Team Providers Care Operational Assistant Name Role Phone Tenzin Arreaga MD Primary Care Provider [phone] Ev Meng MD Unavailable Reason for Visit * Reason Comments E-prescribe Rx Request Encounter Details Date Type Department Care Team Description 09/09/2022 Refill Adult Medicine [address] [address] Filomena Mustafa MD [address] [place] [phone] E-prescribe Rx Request Social History Tobacco Use Types Packs/Day Years Used Date Smoking Tobacco: Former Cigarettes 1 40 Q uit: 2008 Smokeless Tobacco: Never Alcohol Use Standard Drinks/Week Comments Yes 0 (1 standard drink = 0.6 oz pur e alcohol) occasional Sex Assigned at Date Recorded Not on file Job Start Date Occupation Industry Not on file Not on file Not on file COVID-19 Exposure Response Date Recorded In the last 10 days, have yo u been in contact with someone who was confirmed or suspected to have Coronavirus/COVID-19? No / Unsure 08/19/2022 12:49 PM EST documented as of this encounter Miscellaneous Notes * Telephone Encounter - Farida Boyd M.A. - 09/10/2022 11:16 AM EDT Rx currently under Provider Default in pt's chart; however, I do see that this has been prescribed in Adult med in the past. Lab Results Component Value Date NA 141 08/19/2022 K 4.3 08/19/2022 CO2 29 08/19/2022 CL 106 08/19/2022 BUN 21 08/19/2022 CREAT 0.69 08/19/2022 GLU 106 08/19/2022 CA 10.0 08/19/2022 GFR 95 08/19/2022 KENIA w/PCP 08/19/2022 Next OV w/Bere Quinteros 02/16/2023 * Telephone Encounter - Helena Livingston - 09/10/2022 9:29 AM EDT Patient would like script to be: E-PRESCRIBED/FAXED TO PHARMACY WHEN WAS THE PATIENT'S LAST APPOINTMENT IN ADULT MEDICINE? 07/30/22 WHEN WAS THE LAST TIME THE PATIENT SAW THEIR PCP? Same as above Does patient have an upcoming appointment? Yes 02/16/23 (THE MEDICATION REQUESTED IS ON THE MED [...] / [place] / Product Type: MEDICARE [id number] documented in this encounter Plan of Treatment Not on file documented as of this encounter Visit Diagnoses Not on filedocumented in this encounter Care Teams Operational Assistant Relationship Specialty Start Date End Date Tenzin Arreaga MD [address] [place] [address] PCP - General Internal Medicine 01/13/12 Ev Meng MD [address] [place] [address] 9[address]44 Lung Cancer Powdered Sugar Supervisor 04/25/22 documented as of this encounter
--- OUTSIDE RECORDS SUMMARY | 2024-08-31 14:18 | XMS_ITS | Encounter Summary ---
Author Organization [facility] Address [address] [place] [address] Care Team Providers Care Wad Lubricator Name Role Phone Tenzin Arreaga MD Primary Care Provider Ev Meng MD Unavailable Encounter Details Date Type Department Care Team Description 08/01/2022 Business Doc Medical Records [address] [place] [address] Abstract, Provider Social History Tobacco Use Types Packs/Day Years [...] suspected to have Coronavirus/COVID-19? No / Unsure 07/29/2022 2:27 PM EST documented as of this encounter Plan of Treatment Not on file documented as of this encounter Visit Diagnoses Not on filedocumented in this encounter Care Teams Wad Lubricator Relationship Specialty Start Date End Date Tenzin Arreaga MD [address] [place] [address] [phone] PCP - General Internal Medicine 01/13/12 Ev Meng MD [address] [place] [address] [phone] Lung Cancer Mower Mechanic 04/25/22 documented as of this encounter
--- OUTSIDE RECORDS SUMMARY | 2024-08-31 14:18 | XMS_ITS | Encounter Summary ---
Author Organization [facility] Address [address] [place] [address] Care Team Providers Care Lawn Sprinkler Installer Name Role Phone Tenzin Arreaga MD Primary Care Provider [phone] Ev Meng MD Unavailable Encounter Details Date Type Department Care Team Description 05/20/2019 Telephone Adult Medicine [facility] [address] [place], [place] [phone] Tenzin Arreaga MD [address] [place], [place] [phone] Social History Tobacco Use Types Packs/Day Years [...] encounter Miscellaneous Notes * Telephone Encounter - Tenzin Arreaga MD - 05/20/2019 5:19 PM EST Was contracted by the hospital pt had legionella antigen detected Pt was in house for pna And treated with iv abx pt has had hospital F/u pt has appropriate coverage for cap which would cover for legionella No further intervention needed at this time Pt has f/u with me on 06/01/19 documented in this encounter Plan of Treatment Not on file documented as of this encounter Visit Diagnoses Not on filedocumented in this encounter Care Teams Lawn Sprinkler Installer Relationship Specialty Start Date End Date Tenzin Arreaga MD [address] [place] [address] PCP - General Internal Medicine 01/13/12 Ev Meng MD [address] [place] [address] Lung Cancer Lanolin Plant Operator 04/25/22 documented as of this encounter
--- OUTSIDE RECORDS SUMMARY | 2024-08-31 14:18 | XMS_ITS | Encounter Summary ---
Author Organization [facility] Address [address] [place] [address] Care Team Providers Care Reinsurance Analyst Name Role Phone Tenzin Arreaga MD Primary Care Provider Ev Meng MD Unavailable Encounter Details Date Type Department Care Team Description 07/27/2019 User Support Specialist Report Medical Records [address] [place] [address] Social History Tobacco Use Types Packs/Day Years [...] on filedocumented in this encounter Care Teams Reinsurance Analyst Relationship Specialty Start Date End Date Tenzin Arreaga MD [address] [place], [place] [phone] PCP - General Internal Medicine 01/13/12 Ev Meng MD [address] [place] [address] Lung Cancer Pegger 04/25/22 documented as of this encounter
--- OUTSIDE RECORDS SUMMARY | 2024-08-31 14:18 | XMS_ITS | Encounter Summary ---
Author Organization [facility] Address [address] [place] [address] Care Team Providers Care Director Of Sales Marketing Name Role Phone Tenzin Arreaga MD Primary Care Provider [phone] Ev Meng MD Unavailable Encounter Details Date Type Department Care Team Description 04/25/2022 Supervising Airplane Pilot Report Medical Records [address] [place] [address] [facility] [address] [place] [address] Social History Tobacco Use Types Packs/Day Years [...] suspected to have Coronavirus/COVID-19? No / Unsure 04/25/2022 1:11 PM EDT documented as of this encounter Plan of Treatment Not on file documented as of this encounter Visit Diagnoses Not on filedocumented in this encounter Care Teams Director Of Sales Marketing Relationship Specialty Start Date End Date Tenzin Arreaga MD [address] [place] [address] PCP - General Internal Medicine 01/13/12 Ev Meng MD [address] [place] [address] [phone] Lung Cancer Fire Crew Worker 04/25/22 documented as of this encounter
--- OUTSIDE RECORDS SUMMARY | 2024-08-31 14:18 | XMS_ITS | Encounter Summary ---
Author Organization [facility] Address [address] [place] [address] Care Team Providers Care Canvas Goods Supervisor Name Role Phone Tenzin Arreaga MD Primary Care Provider [phone] Ev Meng MD Unavailable Encounter Details Date Type Department Care Team Description 02/26/2015 Release of Information Medical Records [address] [place] [address] Abstract, Provider Social History Tobacco Use Types [...] on filedocumented in this encounter Care Teams Canvas Goods Supervisor Relationship Specialty Start Date End Date Tenzin Arreaga MD [address] [place], [place] [phone] PCP - General Internal Medicine 01/13/12 Ev Meng MD [address] [place] [address] Lung Cancer Order Entry Specialist 04/25/22 documented as of this encounter
--- OUTSIDE RECORDS SUMMARY | 2024-08-31 14:19 | XMS_ITS | Encounter Summary ---
Author Organization [facility] Address [address] [place] [address] Care Team Providers Care Barrel Driller Name Role Phone Tenzin Arreaga MD Primary Care Provider [phone] Ev Meng MD Unavailable Encounter Details Date Type Department Care Team Description 05/07/2021 Light Rail Transit Operator Report Medical Records [address] [place] [address] Abstract, Provider Social History Tobacco Use Types Packs/Day Years Used Date Smoking Tobacco: Former Cigarettes Q uit: 2009 Smokeless Tobacco: Never Alcohol Use Standard Drinks/Week Comments Yes 0 (1 standard drink = 0.6 oz pur e alcohol) occ Sex Assigned at Date Recorded Not on file Job Start Date Occupation Industry Not on file Not on file Not on file COVID-19 Exposure Response Date Recorded In the last month, have you been in contact with someone who was confirmed or suspected to have Coronavirus / COVID-19? No / Unsure 04/29/2021 2:23 PM EDT documented as of this encounter Plan of Treatment Not on file documented as of this encounter Visit Diagnoses Not on filedocumented in this encounter Care Teams Barrel Driller Relationship Specialty Start Date End Date Tenzin Arreaga MD [address] [place] [address] PCP - General Internal Medicine 01/13/12 Ev Meng MD [address] [place] [address] Lung Cancer Cylinder Grinder 04/25/22 documented as of this encounter
--- OUTSIDE RECORDS SUMMARY | 2024-08-31 14:19 | XMS_ITS | Encounter Summary ---
Author Organization [facility] Address [address] [place] [address] Care Team Providers Care Cloud Software Engineer Name Role Phone Tenzin Arreaga MD Primary Care Provider [phone] Ev Meng MD Unavailable Reason for Visit * Reason Onset Date Comments Medication 02/19/2022 Encounter Details Date Type Department Care Team Description 02/19/2022 Refill Gastroenterology - [address] [address] Shavon Jimenez MD Medication Social History Tobacco Use Types Packs/Day Years [...] suspected to have Coronavirus/COVID-19? No / Unsure 02/17/2022 1:27 PM EDT documented as of this encounter Plan of Treatment Not on file documented as of this encounter Visit Diagnoses Not on filedocumented in this encounter Care Teams Cloud Software Engineer Relationship Specialty Start Date End Date Tenzin Arreaga MD [address] [place] [address] PCP - General Internal Medicine 01/13/12 Ev Meng MD [address] [place] [address] Lung Cancer Corrugator 04/25/22 documented as of this encounter
--- OUTSIDE RECORDS SUMMARY | 2024-08-31 14:19 | XMS_ITS | Encounter Summary ---
Author Organization [facility] Address [address] [place] [address] Care Team Providers Care Administrative Asst Name Role Phone Tenzin Arreaga MD Primary Care Provider [phone] Ev Meng MD Unavailable Reason for Visit * Reason Onset Date Comments Faxed Order 05/09/2021 Encounter Details Date Type Department Care Team Description 05/09/2021 Telephone Adult Medicine [address] [phone] Tenzin Arreaga MD [address] [place] [phone] Faxed Order Social History Tobacco Use Types Packs/Day Years [...] PM EDT documented as of this encounter Miscellaneous Notes * Telephone Encounter - Nancy Angulo - 05/09/2021 8:36 AM EST Fax orders from [employer], please sign and fax back. documented in this encounter Plan of Treatment Not on file documented as of this encounter Visit Diagnoses Not on filedocumented in this encounter Care Teams Administrative Asst Relationship Specialty Start Date End Date Tenzin Arreaga MD [address] [place] [address] PCP - General Internal Medicine 01/13/12 Ev Meng MD [address] [place] [address] Lung Cancer Wedding Planning Internship 04/25/22 documented as of this encounter
--- OUTSIDE RECORDS SUMMARY | 2024-08-31 14:19 | XMS_ITS | Encounter Summary ---
Author Organization [facility] Address [address] [place] [address] Care Team Providers Care Mat Weaver Name Role Phone Tenzin Arreaga MD Primary Care Provider [phone] Ev Meng MD Unavailable Encounter Details Date Type Department Care Team Description 07/30/2021 Business Doc Medical Records [address] [place] [address] Abstract, Provider Social History Tobacco Use Types [...] have Coronavirus / COVID-19? No / Unsure 07/25/2021 12:57 PM EST documented as of this encounter Plan of Treatment Not on file documented as of this encounter Visit Diagnoses Not on filedocumented in this encounter Care Teams Mat Weaver Relationship Specialty Start Date End Date Tenzin Arreaga MD [address] [place] [address] PCP - General Internal Medicine 01/13/12 Ev Meng MD [address] [place] [address] Lung Cancer Car Runner 04/25/22 documented as of this encounter
--- OUTSIDE RECORDS SUMMARY | 2024-08-31 14:19 | XMS_ITS | Encounter Summary ---
Author Organization [facility] Address [address] [place] [address] Care Team Providers Care Haulpak Driver Name Role Phone Tenzin Arreaga MD Primary Care Provider [phone] Ev Meng MD Unavailable Encounter Details Date Type Department Care Team Description 12/02/2016 Software Product Specialist Report Medical Records [address] [place] [address] Social History Tobacco Use Types Packs/Day Years [...] on filedocumented in this encounter Care Teams Haulpak Driver Relationship Specialty Start Date End Date Tenzin Arreaga MD [address] [place], [place] [phone] PCP - General Internal Medicine 01/13/12 Ev Meng MD [address] [place] [address] Lung Cancer Test Hole Driller 04/25/22 documented as of this encounter
--- OUTSIDE RECORDS SUMMARY | 2024-08-31 14:19 | XMS_ITS | Clinical Summary ---
Author Organization [facility] [address] [facility] Address [address] [place] [address] Phone Care Team Providers Care Clerk Secretary Name Role Phone Tenzin Arreaga MD Primary Care Provider Allergies No known active allergies Medications betamethasone, [...] PM EST Hospital Encounter Radiology Department - [address] [phone] Encounter for screening mammogram for breast cancer Discharge Disposition: Home or Self Care 07/06/2024 Telephone Adult Medicine [facility] - [address] [phone] Tenzin Arreaga MD 06/03/2024 Telephone Lung Screening Program - [address] [phone] Gisela Alonso [place] Appointment (, [...] DX:Severe obesity (BMI 35.0- 35.9 with comorbidity) ([facility]) Family History Medical History Relation Name Comments [...] 1:15 PM EDT Office Visit Adult Medicine [address] [phone] Tenzin Arreaga MD [address] [place] [phone] Health Maintenance Due Date Last Done Comments [...] is recommended in 1 year. Mammo Location: [facility], [address] [place] [address], [id number], . -------- FINAL REPORT -------- Dictated By: Bety Colmenares Dictated Date: 08/09/2024 10:17 ET Assigned Physician: Bety Colmenares Reviewed and Electronically Signed By: Bety Colmenares Signed Date: 08/09/2024 10:21 ET Workstation ID: [id number] Transcribed By: Self Edit Transcribed Date: 08/09/2024 [...] is recommended in 1 year. Mammo Location: [facility], [address] [place] [address], [id number], . -------- FINAL REPORT -------- Dictated By: Bety Colmenares Dictated Date: 08/09/2024 10:17 ET Assigned Physician: Bety Colmenares Reviewed and Electronically Signed By: Bety Colmenares Signed Date: 08/09/2024 10:21 ET Workstation ID: [id number] Transcribed By: Self Edit Transcribed Date: 08/09/2024 10:17 ET us Tenzin Arreaga MD IMG BI PROCEDURES Final Result * (ABNORMAL) Basic metabolic panel (05/05/2024 3:38 PM EST) Sodium 142 133 - 145 mmol/L LAB CHEMISTRY METHOD 05/05/2024 6:46 PM [facility] Potassium 3.5 3.5 - 5.5 mmol/L LAB CHEMISTRY METHOD 05/05/2024 6:46 PM [facility] Chloride 107 96 - 110 mmol/L LAB CHEMISTRY METHOD 05/05/2024 6:46 PM [facility] CO2 30 21 - 32 mmol/L LAB CHEMISTRY METHOD 05/05/2024 6:46 PM [facility] Anion Gap 5 3 - 11 LAB CHEMISTRY METHOD 05/05/2024 6:46 PM [facility] Glucose 106(H) 70 - 100 mg/dL LAB CHEMISTRY METHOD 05/05/2024 6:46 PM [facility] BUN 28(H) 5 - 25 mg/dL LAB CHEMISTRY METHOD 05/05/2024 6:46 PM [facility] Creatinine 1.12(H) 0.50 - 1.10 mg/dL LAB CHEMISTRY METHOD 05/05/2024 6:46 PM [facility] eGFR 53(L) >=60 mL/min/1. 73m2 LAB CHEMISTRY METHOD 05/05/2024 6:46 PM [facility] Comment:Calculation based on the??Chronic Kidney Disease Epidemiology Collaboration (CKD-EPI) equation refit??without adjustment for race. BUN/Creatinine Ratio 25.0 LAB CHEMISTRY METHOD 05/05/2024 6:46 PM EST [facility] Calcium 10.0 8.5 - 10.5 mg/dL LAB CHEMISTRY METHOD 05/05/2024 6:46 PM EST [facility] Blood Venous blood specimen / Unknown Venipuncture / Unknown 05/05/2024 3:38 PM EST 05/05/2024 3:38 PM EST Tenzin Arreaga MD LAB BLOOD ORDERABLES Final Resu lt [facility] [address] [place] [address], * Falls Risk Assessment (10/30/2023) Pathologist [facility] Falls Risk Assessment Abstracted [facility] Provider HEALTH MAINTENANCE Final Result * Depression Screening (10/30/2023) Pathologist [facility] Depression Screening Abstracted Historical Provider HEALTH MAINTENANCE Final Result * (ABNORMAL) Lipid panel (10/30/2023) [facility] LDL/HDL Ratio 2 0 - 4 Triglycerides 81 0 - 150 mg/dL Cholesterol 221(A) 0 - 200 mg/dL HDL 104 >=40 mg/dL LDL Cholesterol 101(A) 0 - 100 mg/dL Blood Venous blood specimen / Unknown Result [facility] Provider LAB BLOOD ORDERABLES Mikaela l Result * Colonoscopy (03/05/2022) Pathologist [facility] Colonoscopy Abstracted, no interpretation Anatomical Region Laterality Modality Other [facility] Provider HEALTH MAINTENANCE Final Result [...] classified as having normal bone density. [facility] Department of Internal Medicine recommends using [...] classified as having normal bone density. [facility] Department of Internal Medicine recommendsusing National [...] Resu lt * Hepatitis C Screening (04/07/2017) [facility] Hepatitis C Screening Abstracted Historical Provider HEALTH MAINTENANCE Final Result from Last 3 Months or Most Recently Relevant to Health Maintenance Insurance MEDICARE [place]ICAID - [place] Care Teams Clerk Secretary Relationship Specialty Start Date End Date Tenzin Arreaga MD [address] [place] [phone] PCP - General Internal Medicine 05/03/24
--- OUTSIDE RECORDS SUMMARY | 2024-08-31 14:19 | XMS_ITS | Encounter Summary ---
Author Organization [facility] Address [address] [place] [address] Care Team Providers Care Joint Setter Name Role Phone Tenzin Arreaga MD Primary Care Provider [phone] Ev Meng MD Unavailable Encounter Details Date Type Department Care Team Description 05/16/2019 Hospital Medical Records [address] [place] [address] Rancho Wilburn MD Social History Tobacco Use Types Packs/Day [...] on filedocumented in this encounter Care Teams Joint Setter Relationship Specialty Start Date End Date Tenzin Arreaga MD [address] [place] [address] [phone] PCP - General Internal Medicine 01/13/12 Ev Meng MD [address] [place] [phone] Lung Cancer Desktop Administrator 04/25/22 documented as of this encounter
== END 2024-08-31 11:53 | disposition home or self-care (01) ==
LOC: HO.HAP 11:52
PROVIDERS: Visit Provider Internal Medicine
DX: Z46.1 Encounter for fitting and adjustment of hearing aid (principal); H90.3 Sensorineural hearing loss, bilateral
CPT/HCPCS: 92700; V5264